=== PATIENT | female | born 1950 | race Caucasian/White ===

== ENCOUNTER → 2016-05-27 | Day surgery (SDC) | payer MEDICARE ==
[2016-05-26 12:00] VITALS: BMI 26.5
[2016-05-27 10:32] VITALS: BP 178/75; PULSE 51; RESP 18; TEMP 97.7
== END ==
LOC: CATHCVL 10:03
PROVIDERS: ATTEND Radiology Diagnostic Radiology
DX: Z53.8 Procedure and treatment not carried out for other reasons (principal)

== ENCOUNTER → 2016-06-16 | Day surgery (SDC) | payer MEDICARE ==
[2016-06-15 15:20] VITALS: BMI 26.7
[2016-06-16 12:20] VITALS: BP 131/62; PULSE 64; RESP 18; TEMP 99.1
[2016-06-16] MEDS: LIDOCAINE 2% INJ 20 MG/ML SQ ONE ×2 (12:37→13:03)
--- NOTE | 2016-06-16 14:53 | IR ---
PICC LINE PLACEMENT: HISTORY: Infection requiring long-term antibiotic therapy PROCEDURE: Ultrasound and fluoroscopic guidance of PICC line placement. COMPLICATIONS: None ANESTHESIA: 1. 1% Lidocaine locally. FINDINGS/TECHNIQUE: The procedure was explained to the patient. The risks, complications, benefits and alternatives were discussed and any questions were answered. Informed consent was obtained. The patient was placed supine on the fluoroscopic table and prepped and draped in the usual sterile fas ion. There is no sizable vein for percutaneous access for PICC line placement bilaterally. Referring physi komal notified. patient was stable throughout the procedure and remained stable upon discharge from [facility] Department of Radiology. All elements of the maximal barrier technique were utilized. FLUOROSCOPY TIME: 1.9 minutes IMPRESSION: No sizable vein for percutaneous placement of PICC line.
== END ==
LOC: CATHCVL 11:03
PROVIDERS: ATTEND Radiology Diagnostic Radiology
DX: M54.5 Low back pain (principal)

== ENCOUNTER → 2016-06-16 | Outpatient (CLI) | payer MEDICARE | LOC: RADMRIMAIN 15:40 | PROVIDERS: ATTEND Specialist | DX: Z53.9 Procedure and treatment not carried out, unspecified reason (principal) ==

== ENCOUNTER 2016-08-27 09:53 | Inpatient (IN) | payer MEDICARE ==
--- NOTE | 2016-08-27 09:55 | ED ---
General Adult HPI - General Stated complaint: Altered Mental Time Seen by Provider: 08/27/16 09:55 Source: RN notes reviewed, old records reviewed - History of Present Illness Initial comments: This is a 58-year-old female to the ER for evaluation. Patient presents for evaluation of syncopal event. Patient had a syncopal event while with friends earlier today having a cigarette. Patient has medical history that includes lower extremity paralysis, paraplegic. Patient has significant chronic pain disorder. Takes multiple different pain medications. Patient complains of some feelings of lightheadedness and dizziness, denies chest pain. - Related Data Home Medications Medication Instructions Recorded Confirmed Lubiprostone [Amitiza] 24 mcg PO BID 08/17/15 06/15/16 Acetaminophen [Tylenol] 325 mg PO Q8H PRN 05/26/16 06/15/16 Apixaban [Eliquis] 2.5 mg PO BID 05/26/16 06/15/16 Baclofen [Lioresal] 20 mg PO BID 05/26/16 06/15/16 Docusate [Colace] 200 mg PO BID PRN 05/26/16 06/15/16 Furosemide [Lasix] 20 mg PO HS 05/26/16 06/15/16 LORazepam [Ativan] 1 mg PO TID PRN 05/26/16 06/15/16 Melatonin 10 mg PO HS 05/26/16 06/15/16 Oxybutynin Xl [Ditropan Xl] 5 mg PO DAILY 05/26/16 06/15/16 Potassium Chloride ER [K-Dur 10] 8 meq PO HS 05/26/16 06/15/16 Pravastatin Sodium [Pravachol] 20 mg PO HS 05/26/16 06/15/16 Sennosides [Senna] 2 tab PO HS PRN 05/26/16 06/15/16 Sucralfate [Carafate] 1 gm PO ACHS 05/26/16 06/15/16 Tiotropium Adams [Spiriva 1 dose INHALATION DAILY 05/26/16 06/15/16 Respimat] Morphine Sulfate [Morphine Sulfate 45 mg PO Q8HR PRN 05/27/16 06/15/16 ER] Ammonium Lactate Lotion 1 applic TOPICAL BID 06/15/16 06/15/16 [Lac-Hydrin 12% Lotion] Benzocaine-Resorcinol Vaginal Cream 1 dose VAGINAL BID 06/15/16 Bisacodyl [Dulcolax] 10 mg RECTAL DAILY PRN 06/15/16 06/15/16 HYDROmorphone [Dilaudid] 10 mg PO Q2HR PRN 06/15/16 06/15/16 Hydrocortisone 1% Lotion 1 applic TOPICAL BID PRN 06/15/16 06/15/16 Levalbuterol Nebulized [Xopenex 1.25 mg INHALATION Q6HR PRN 06/15/16 06/15/16 Nebulized] Lidocaine 4% Cream [Lmx 4] 1 applic TOPICAL Q8HR 06/15/16 06/15/16 Magnesium Hydroxide [Milk of 2,400 mg PO DAILY PRN 06/15/16 06/15/16 Magnesia Concentrate] Metoprolol Tartrate [Lopressor] 12.5 mg PO BID 06/15/16 06/15/16 Mirtazapine [Remeron] 15 mg PO HS 06/15/16 06/15/16 Omeprazole 20 mg PO BID 06/15/16 06/15/16 Polyethylene Glycol 3350 [Miralax] 17 gm PO BID PRN 06/15/16 06/15/16 Allergies Allergy/AdvReac Type Severity Reaction Status Date / Time ciprofloxacin [From Cipro] Allergy Unknown Verified 06/15/16 15:07 escitalopram [From Lexapro] Allergy Unknown Verified 06/15/16 15:07 fexofenadine [From Oksana] Allergy Unknown Verified 06/15/16 15:07 gabapentin [From Neurontin] Allergy Unknown Verified 06/15/16 15:07 Influenza Virus Vaccines Allergy Unknown Verified 06/15/16 15:07 levetiracetam [From Keppra] Allergy Unknown Verified 06/15/16 15:07 paroxetine [From Paxil] Allergy Unknown Verified 06/15/16 15:07 Penicillins Allergy Anaphylaxis Verified 06/15/16 15:07 pregabalin [From Lyrica] Allergy Anaphylaxis Verified 06/15/16 15:07 sulfamethoxazole Allergy Dyspnea Verified 06/15/16 15:07 [From Bactrim] topiramate [From Topamax] Allergy Dyspnea Verified 06/15/16 15:07 trimethoprim [From Bactrim] Allergy Dyspnea Verified 06/15/16 15:07 tuberculin, purified protein Allergy Unknown Verified 06/15/16 15:07 deriva Review of Systems ROS Statement: Those systems with pertinent positive or pertinent negative responses have been documented in the HPI. ROS Other: All systems not noted in ROS Statement are negative. Past Medical History Past Medical History: COPD, CVA/TIA, Deep Vein Thrombosis (DVT), Hyperlipidemia , Hypertension, Neurologic Disorder, Osteoarthritis (OA), Pneumonia, Pulmonary Embolus (PE), Seizure Disorder, Vascular Disorder Additional Past Medical History / Comment(s): anemia, rt sided hemiparesis , chronic pain, spinal stenosis, hx of pressure ulcers,"poor circulation", type 2 diabetes (no meds), neuropathy, hx of seizures (unknown date of last seizure.) , occasional incontinence. , Pt is wheelchair bound, uses carlo lift to transfer. History of Any Multi-Drug Resistant Organisms: None Reported Past Surgical History: Back Surgery, Cholecystectomy, Orthopedic Surgery, Tubal Ligation Additional Past Surgical History / Comment(s): RT HIP REPLACEMENT,SECOND SX ON HIP(REVISION)-pt satated that this has come apart since, spinal fusion x3, fem pop bypass bilaterally, RT ARM BLOOD CLOT REMOVED, Past Anesthesia/Blood Transfusion Reactions: No Reported Reaction Past Psychological History: Anxiety, Bipolar, Depression, PTSD Additional Psychological History / Comment(s): BOARDERLINE PERSONALITY DISORDER Smoking Status: Current every day smoker Past Alcohol Use History: None Reported Additional Past Alcohol Use History / Comment(s): STARTED SMOKING IN HER 20"S- Past Drug Use History: None Reported - Past Family History Father Additional Family Medical History / Comment(s): ETOH ABUSE Mother Additional Family Medical History / Comment(s): POOR CIRCULATION General Exam General appearance: alert, in no apparent distress, anxious Head exam: Present: atraumatic, normocephalic, normal inspection Eye exam: Present: normal appearance, PERRL, EOMI. Absent: scleral icterus, conjunctival injection, periorbital swelling ENT exam: Present: normal exam, mucous membranes moist Neck exam: Present: normal inspection. Absent: tenderness, meningismus, lymphadenopathy Respiratory exam: Present: normal lung sounds bilaterally. Absent: respiratory distress, wheezes, rales, rhonchi, stridor Cardiovascular Exam: Present: tachycardia, irregular rhythm, normal heart sounds. Absent: systolic murmur, diastolic murmur, rubs, gallop, clicks GI/Abdominal exam: Present: soft, normal bowel sounds. Absent: distended, tenderness, guarding, rebound, rigid Extremities exam: Present: normal inspection, full ROM, normal capillary refill. Absent: tenderness, pedal edema, joint swelling, calf tenderness Back exam: Present: normal inspection Neurological exam: Present: alert, oriented X3, CN II-XII intact Psychiatric exam: Present: normal affect, normal mood Skin exam: Present: warm, dry, intact, normal color. Absent: rash Course Vital Signs 08/27/16 08/27/16 08/27/16 09:57 11:02 11:53 Temperature 98.7 F Pulse Rate 113 H 97 54 L Respiratory 18 18 18 Rate Blood Pressure 103/59 130/60 135/61 O2 Sat by Pulse 100 93 L 94 L Oximetry - Reevaluation(s) Reevaluation #1: 08/27/16 13:31 Patient's main complaint complaint appears to be surrounding pain. Generalized pain. Leg pain. She denies chest pain, no headache EKG Findings - EKG Comments: EKG Findings:: Rhythm strip shows A. fib and RVR. EKG shows sinus bradycardia acardia area 59, W[place] 134, QRS 74, QTC 423. EKG shows normal sinus rhythm rate of 63, W[place] 142, QRS 104, QTC 440 Medical Decision Making - Medical Decision Making 16 female beers today., Positive A. fib with RVR and history of seizure disorder, patient was postictal presumably has seen, in the ER today with A. fib with RVR which did convert with rate control. Patient placed on a Cardizem drip for cardiology evaluation, will also treat urinary tract infection underlying, CT is negative for dissection or aneurysm, no evidence of PE. Patient will be admitted for continued cardiac observation and cardiopulmonary status - Lab Data Result diagrams: 08/27/16 10:52 08/27/16 10:52 Lab Results 08/27/16 08/27/16 08/27/16 Range/Units 10:27 10:27 10:52 WBC 9.1 (3.8-10.6) k/uL RBC 4.79 (3.80-5.40) m/uL Hgb 12.0 (11.4-16.0) gm/dL Hct 38.6 (34.0-46.0) % MCV 80.5 (80.0-100.0) fL MCH 25.0 (25.0-35.0) pg MCHC 31.0 (31.0-37.0) g/dL RDW 19.4 H (11.5-15.5) % Plt Count 226 (150-450) k/uL Neutrophils % 80 % Lymphocytes % 12 % Monocytes % 4 % Eosinophils % 2 % Basophils % 0 % Neutrophils # 7.3 (1.3-7.7) k/uL Lymphocytes # 1.1 (1.0-4.8) k/uL Monocytes # 0.4 (0-1.0) k/uL Eosinophils # 0.2 (0-0.7) k/uL Basophils # 0.0 (0-0.2) k/uL Hypochromasia Marked Anisocytosis Slight Microcytosis Slight PT (9.0-12.0) sec INR (<1.2) APTT (22.0-30.0) sec D-Dimer (<0.60) mg/L FEU Sodium (137-145) mmol/L Potassium (3.5-5.1) mmol/L Chloride (98-107) mmol/L Carbon Dioxide (22-30) mmol/L Anion Gap mmol/L BUN (7-17) mg/dL Creatinine (0.52-1.04) mg/dL Est GFR (MDRD) Af Amer (>60 ml/min/1.73 sqM) Est GFR (MDRD) Non-Af (>60 ml/min/1.73 sqM) Glucose (74-99) mg/dL Plasma Lactic Acid Julio (0.7-2.0) mmol/L Calcium (8.4-10.2) mg/dL Phosphorus (2.5-4.5) mg/dL Magnesium (1.6-2.3) mg/dL Total Bilirubin (0.2-1.3) mg/dL AST (14-36) U/L ALT (9-52) U/L Alkaline Phosphatase (38-126) U/L Ammonia (<30) umol/L Total Creatine Kinase (30-135) U/L CK-MB (CK-2) (0.0-2.4) ng/mL CK-MB (CK-2) Rel Index Troponin I (0.000-0.034) ng/mL Total Protein (6.3-8.2) g/dL Albumin (3.5-5.0) g/dL TSH (0.465-4.680) mIU/L Urine Color Light Yellow Urine Appearance Clear (Clear) Urine pH 6.5 (5.0-8.0) Ur Specific Lopez 1.009 (1.001-1.035) Urine Protein Negative (Negative) Urine Glucose (UA) Negative (Negative) Urine Ketones Negative (Negative) Urine Blood Trace H (Negative) Urine Nitrite Positive H (Negative) Urine Bilirubin Negative (Negative) Urine Urobilinogen <2.0 (<2.0) mg/dL Ur Leukocyte Esterase Moderate H (Negative) Urine RBC 4 (0-5) /hpf Urine WBC 14 H (0-5) /hpf Ur Squamous Epith Cells <1 (0-4) /hpf Urine Bacteria Rare H (None) /hpf Hyaline Casts 8 H (0-2) /lpf Urine Mucus Rare H (None) /hpf Salicylates mg/dL Urine Opiates Screen Detected H (NotDetected) Ur Oxycodone Screen Not Detected (NotDetected) Urine Methadone Screen Not Detected (NotDetected) Ur Propoxyphene Screen Not Detected (NotDetected) Acetaminophen ug/mL Ur Barbiturates Screen Not Detected (NotDetected) U Tricyclic Antidepress Not Detected (NotDetected) Ur Phencyclidine Scrn Not Detected (NotDetected) Ur Amphetamines Screen Not Detected (NotDetected) U Methamphetamines Scrn Not Detected (NotDetected) U Benzodiazepines Scrn Detected H (NotDetected) Urine Cocaine Screen Not Detected (NotDetected) U Marijuana (THC) Screen Not Detected (NotDetected) Serum Alcohol mg/dL 08/27/16 08/27/16 08/27/16 Range/Units 10:52 10:52 10:52 WBC (3.8-10.6) k/uL RBC (3.80-5.40) m/uL Hgb (11.4-16.0) gm/dL Hct (34.0-46.0) % MCV (80.0-100.0) fL MCH (25.0-35.0) pg MCHC (31.0-37.0) g/dL RDW (11.5-15.5) % Plt Count (150-450) k/uL Neutrophils % % Lymphocytes % % Monocytes % % Eosinophils % % Basophils % % Neutrophils # (1.3-7.7) k/uL Lymphocytes # (1.0-4.8) k/uL Monocytes # (0-1.0) k/uL Eosinophils # (0-0.7) k/uL Basophils # (0-0.2) k/uL Hypochromasia Anisocytosis Microcytosis PT 9.9 (9.0-12.0) sec INR 1.0 (<1.2) APTT 22.1 (22.0-30.0) sec D-Dimer 1.65 H (<0.60) mg/L FEU Sodium 142 (137-145) mmol/L Potassium 3.5 (3.5-5.1) mmol/L Chloride 102 (98-107) mmol/L Carbon Dioxide 29 (22-30) mmol/L Anion Gap 11 mmol/L BUN 21 H (7-17) mg/dL Creatinine 0.55 (0.52-1.04) mg/dL Est GFR (MDRD) Af Amer >60 (>60 ml/min/1.73 sqM) Est GFR (MDRD) Non-Af >60 (>60 ml/min/1.73 sqM) Glucose 104 H (74-99) mg/dL Plasma Lactic Acid Julio 1.8 (0.7-2.0) mmol/L Calcium 8.6 (8.4-10.2) mg/dL Phosphorus 3.4 (2.5-4.5) mg/dL Magnesium 1.7 (1.6-2.3) mg/dL Total Bilirubin 0.3 (0.2-1.3) mg/dL AST 21 (14-36) U/L ALT 32 (9-52) U/L Alkaline Phosphatase 82 (38-126) U/L Ammonia <9 (<30) umol/L Total Creatine Kinase (30-135) U/L CK-MB (CK-2) (0.0-2.4) ng/mL CK-MB (CK-2) Rel Index Troponin I (0.000-0.034) ng/mL Total Protein 6.5 (6.3-8.2) g/dL Albumin 3.8 (3.5-5.0) g/dL TSH 1.680 (0.465-4.680) mIU/L Urine Color Urine Appearance (Clear) Urine pH (5.0-8.0) Ur Specific Lopez (1.001-1.035) Urine Protein (Negative) Urine Glucose (UA) (Negative) Urine Ketones (Negative) Urine Blood (Negative) Urine Nitrite (Negative) Urine Bilirubin (Negative) Urine Urobilinogen (<2.0) mg/dL Ur Leukocyte Esterase (Negative) Urine RBC (0-5) /hpf Urine WBC (0-5) /hpf Ur Squamous Epith Cells (0-4) /hpf Urine Bacteria (None) /hpf Hyaline Casts (0-2) /lpf Urine Mucus (None) /hpf Salicylates <1.0 mg/dL Urine Opiates Screen (NotDetected) Ur Oxycodone Screen (NotDetected) Urine Methadone Screen (NotDetected) Ur Propoxyphene Screen (NotDetected) Acetaminophen <10.0 ug/mL Ur Barbiturates Screen (NotDetected) U Tricyclic Antidepress (NotDetected) Ur Phencyclidine Scrn (NotDetected) Ur Amphetamines Screen (NotDetected) U Methamphetamines Scrn (NotDetected) U Benzodiazepines Scrn (NotDetected) Urine Cocaine Screen (NotDetected) U Marijuana (THC) Screen (NotDetected) Serum Alcohol <10 mg/dL 08/27/16 Range/Units 10:52 WBC (3.8-10.6) k/uL RBC (3.80-5.40) m/uL Hgb (11.4-16.0) gm/dL Hct (34.0-46.0) % MCV (80.0-100.0) fL MCH (25.0-35.0) pg MCHC (31.0-37.0) g/dL RDW (11.5-15.5) % Plt Count (150-450) k/uL Neutrophils % % Lymphocytes % % Monocytes % % Eosinophils % % Basophils % % Neutrophils # (1.3-7.7) k/uL Lymphocytes # (1.0-4.8) k/uL Monocytes # (0-1.0) k/uL Eosinophils # (0-0.7) k/uL Basophils # (0-0.2) k/uL Hypochromasia Anisocytosis Microcytosis PT (9.0-12.0) sec INR (<1.2) APTT (22.0-30.0) sec D-Dimer (<0.60) mg/L FEU Sodium (137-145) mmol/L Potassium (3.5-5.1) mmol/L Chloride (98-107) mmol/L Carbon Dioxide (22-30) mmol/L Anion Gap mmol/L BUN (7-17) mg/dL Creatinine (0.52-1.04) mg/dL Est GFR (MDRD) Af Amer (>60 ml/min/1.73 sqM) Est GFR (MDRD) Non-Af (>60 ml/min/1.73 sqM) Glucose (74-99) mg/dL Plasma Lactic Acid Julio (0.7-2.0) mmol/L Calcium (8.4-10.2) mg/dL Phosphorus (2.5-4.5) mg/dL Magnesium (1.6-2.3) mg/dL Total Bilirubin (0.2-1.3) mg/dL AST (14-36) U/L ALT (9-52) U/L Alkaline Phosphatase (38-126) U/L Ammonia (<30) umol/L Total Creatine Kinase 139 H (30-135) U/L CK-MB (CK-2) 1.9 (0.0-2.4) ng/mL CK-MB (CK-2) Rel Index 1.4 Troponin I <0.012 (0.000-0.034) ng/mL Total Protein (6.3-8.2) g/dL Albumin (3.5-5.0) g/dL TSH (0.465-4.680) mIU/L Urine Color Urine Appearance (Clear) Urine pH (5.0-8.0) Ur Specific Lopez (1.001-1.035) Urine Protein (Negative) Urine Glucose (UA) (Negative) Urine Ketones (Negative) Urine Blood (Negative) Urine Nitrite (Negative) Urine Bilirubin (Negative) Urine Urobilinogen (<2.0) mg/dL Ur Leukocyte Esterase (Negative) Urine RBC (0-5) /hpf Urine WBC (0-5) /hpf Ur Squamous Epith Cells (0-4) /hpf Urine Bacteria (None) /hpf Hyaline Casts (0-2) /lpf Urine Mucus (None) /hpf Salicylates mg/dL Urine Opiates Screen (NotDetected) Ur Oxycodone Screen (NotDetected) Urine Methadone Screen (NotDetected) Ur Propoxyphene Screen (NotDetected) Acetaminophen ug/mL Ur Barbiturates Screen (NotDetected) U Tricyclic Antidepress (NotDetected) Ur Phencyclidine Scrn (NotDetected) Ur Amphetamines Screen (NotDetected) U Methamphetamines Scrn (NotDetected) U Benzodiazepines Scrn (NotDetected) Urine Cocaine Screen (NotDetected) U Marijuana (THC) Screen (NotDetected) Serum Alcohol mg/dL - Radiology Data Radiology results: report reviewed (Bilateral lower extremity ultrasound negative for DVT, CT negative for PE), image reviewed Critical Care Time Critical Care Time: Yes Total Critical Care Time: 31 Disposition Clinical Impression: Seizure, Syncope and collapse, New onset atrial fibrillation, Atrial fibrillation with RVR, UTI (urinary tract infection) Disposition: ADMITTED IP TO THIS [facility] Condition: Fair Referrals: Dylan Venegas MD [Primary Care Provider] - 1-2 days
[2016-08-27] MEDS ORDERED: SODIUM CHLORIDE 0.9% 1,000 ML IV STA ×3 (10:11→11:16)
[2016-08-27] MEDS ORDERED: DILTIAZEM 125 MG in SODIUM CHLORIDE 0.9% 100 ML IV ONE (10:43)
[2016-08-27] MEDS ORDERED: DILTIAZEM 5 MG/ML 5 ML VIAL IVP STA (10:43)
[2016-08-27 10:59] LABS: Appearance,Urine Clear (Clear); Bacteria,Urine Rare /hpf; Bilirubin,Urine Negative (Negative); Glucose,Urine (UA) Negative (Negative); Ketones,Urine Negative (Negative); Leukocyte Esterase,Urine Moderate (Negative); Mucus,Urine Rare /hpf; Nitrite,Urine Positive (Negative); PH, Urine 6.5 (5.0-8.0); Particle Count 5349; Protein,Urine Negative (Negative); RBC,Urine 4 /hpf (0-5); Specific Gravity,Urine 1.009 (1.001-1.035); Squamous Epithelial Cell,Urine <1 /hpf (0-4); UA Billing (MACRO vs. MICRO) MICRO; Urobilinogen,Urine <2.0 mg/dL (<2.0); WBC,Urine 14 /hpf (0-5)
[2016-08-27 11:34] LABS: ALT 32 U/L (9-52); AST 21 U/L (14-36); Acetaminophen <10.0 ug/mL; Alcohol <10 mg/dL; Alkaline Phosphatase 82 U/L (38-126); Anion Gap 11 mmol/L; Blood Urea Nitrogen 21 mg/dL (7-17); Calcium 8.6 mg/dL (8.4-10.2); Carbon Dioxide 29 mmol/L (22-30); Chloride 102 mmol/L (98-107); Glucose 104 mg/dL (74-99); Magnesium 1.7 mg/dL (1.6-2.3); Non-African American GFR(MDRD) >60 (>60 ml/min/1.73 sqM); Phosphorous 3.4 mg/dL (2.5-4.5); Potassium 3.5 mmol/L (3.5-5.1); Salicylate <1.0 mg/dL; Sodium 142 mmol/L (137-145); Total Bilirubin 0.3 mg/dL (0.2-1.3); Total Protein 6.5 g/dL (6.3-8.2)
[2016-08-27 11:35] LABS: Anisocytosis Slight; Basophils % (A) 0 %; CH 23.9; CHCM 29.8; Eosinophils # (A) 0.2 k/uL (0-0.7); Eosinophils % (A) 2 %; HCT 38.6 % (34.0-46.0); HDW 2.77; Hypochromasia Marked; Luc # (Auto) 0.15; Luc % (Auto) 2; Lymphocytes # (A) 1.1 k/uL (1.0-4.8); Lymphocytes % (A) 12 %; MCV 80.5 fL (80.0-100.0); Mean Platelet Volume 8.2; Microcytosis Slight; Monocytes # (A) 0.4 k/uL (0-1.0); Monocytes % (A) 4 %; Neutrophils # (A) 7.3 k/uL (1.3-7.7); Neutrophils % (A) 80 %; RBC 4.79 m/uL (3.80-5.40); RDW 19.4 % (11.5-15.5); WBC 9.1 k/uL (3.8-10.6); WBC (Perox) 8.87
[2016-08-27 11:37] LABS: Ammonia <9 umol/L (<30)
[2016-08-27 11:44] LABS: Partial Thromboplastin Time 22.1 sec (22.0-30.0); Prothrombin Time 9.9 sec (9.0-12.0)
--- NOTE | 2016-08-27 11:55 | US ---
EXAMINATION TYPE: US venous doppler duplex LE DATE OF EXAM: 08/27/2016 11:42 AM COMPARISON: NONE CLINICAL HISTORY: Pain. SIDE PERFORMED: bilateral TECHNIQUE: The lower extremity deep venous system is examined utilizing real time linear array sonog moriah with graded compression, doppler sonography and color-flow sonography. VESSELS IMAGED: External Iliac Vein (EIV) Common Femoral Vein Deep Femoral Vein Greater Saphenous Vein * Femoral Vein Popliteal Vein Small Saphenous Vein * Proximal Calf Veins (* superficial vessels) Grayscale, color doppler, spectral doppler imaging performed of the deep veins of the lower extremiti es. There is normal flow, compressibility, vascular waveforms bilaterally. Right Leg: negative for dvt Left Leg: negative for dvt IMPRESSION: No evidence for DVT
[2016-08-27] MEDS ORDERED: RX INFO: IV CONTRAST WAS GIVEN 1 EACH MISC MISCELLANE PRN (11:56)
[2016-08-27 12:04] LABS: Creatine Kinase 139 U/L (30-135)
[2016-08-27] MEDS ORDERED: HYDROmorphone 2 MG/ML 1 ML SYRINGE IVP STA (12:16)
[2016-08-27] MEDS ORDERED: HYDROmorphone 2 MG/ML 1 ML SYRINGE IVP PRN (12:16)
[2016-08-27 12:18] LABS: Creatine Kinase MB 1.9 ng/mL (0.0-2.4); Troponin I <0.012 ng/mL (0.000-0.034)
--- NOTE | 2016-08-27 13:15 | CT ---
EXAMINATION TYPE: CT angio chest DATE OF EXAM: 08/27/2016 12:53 PM COMPARISON: NONE HISTORY: elevated d dimer CT DLP: 363.9 mGycm Automated exposure control for dose reduction was used. CONTRAST: CTA scan of the thorax is performed with IV Contrast, patient injected with 100 mL of Omnipaque 350, pulmonary embolism protocol. There are 3-D post processed images.. FINDINGS: There is a patchy nodular pulmonary infiltrate in the right upper lobe. There are also coarse calcifi cations that measure up to 1 cm. There is no evidence of aortic aneurysm or dissection. I see no fill ing defects in the pulmonary arteries. There are no hilar masses. There is subpleural interstitial de nsity at the posterior lung bases consistent with scarring and atelectasis. There is no pleural effus ion. There is no pericardial effusion. The bony thorax is intact. There is spurring in the thoracic s pine. IMPRESSION: NO EVIDENCE OF PULMONARY EMBOLISM. EXTENSIVE NODULAR INFILTRATE IN THE RIGHT UPPER LOBE WITH CALCIFIC ATION PROBABLY DUE TO OLD GRANULOMATOUS DISEASE AND SCARRING. FIBROTIC CHANGES AND SUBSEGMENTAL ATELECTASIS AT THE LUNG BASES. RIGHT-SIDED CENTRAL VENOUS CATHETER NOTED. THE TIP IS IN THE SUPERIOR VENA CAVA. 2.5 CM OVAL-SHAPED CUTANEOUS MASS NOTED IN THE POSTERIOR RIGHT UPPER BACK COULD BE A SEBACEOUS CYST.
[2016-08-27] MEDS ORDERED: IPRATROPIUM-ALBUTEROL 3 ML NEB INHALATION STA (13:26)
[2016-08-27] MEDS ORDERED: ASPIRIN 81 MG CHEW PO STA (13:26)
[2016-08-27] MEDS ORDERED: NITROGLYCERIN SL TABS 0.4 MG TAB SUBLINGUAL PRN (13:26)
[2016-08-27] MEDS ORDERED: HEPARIN SODIUM,PORCINE 5,000 UNIT/ML 1 ML VIAL IV ONE (13:26)
[2016-08-27] MEDS ORDERED: IPRATROPIUM-ALBUTEROL 3 ML NEB INHALATION PRN (13:26)
[2016-08-27] MEDS ORDERED: HEPARIN SODIUM,PORCINE 5,000 UNIT/ML 1 ML VIAL IV PRN (13:26)
[2016-08-27] MEDS ORDERED: HEPARIN SODIUM,PORCINE/D5W PMX 25,000 UNIT in DEXTROSE/WATER 1 500ML.BAG IV SCH (13:30)
[2016-08-27 14:35] VITALS: BMI 28.0
[2016-08-27] MEDS: SODIUM CHLORIDE 0.9% 1,000 ML IV SCH (14:54)
[2016-08-27 17:13] LABS: Glucose,Whole Blood 115 mg/dL (75-99)
[2016-08-27 17:30] LABS: Creatine Kinase MB 1.9 ng/mL (0.0-2.4); Troponin I 0.02 ng/mL (0.000-0.034)
[2016-08-27] MEDS ORDERED: HYDROCORTISONE 1% CREAM 30 GM TUBE TOPICAL PRN (17:56)
[2016-08-27] MEDS ORDERED: NA PHOS,M-B/NA PHOS,DI-BA 133 ML ENEMA RECTAL PRN (17:56)
[2016-08-27] MEDS ORDERED: LORazepam 1 MG TAB PO PRN (17:56)
[2016-08-27] MEDS ORDERED: ACETAMINOPHEN TAB 325 MG TAB PO PRN (17:56)
[2016-08-27] MEDS ORDERED: DOCUSATE 100 MG CAP PO PRN (17:56)
[2016-08-27] MEDS ORDERED: MORPHINE SULFATE ER 15 MG TABLET PO PRN (17:56)
[2016-08-27] MEDS ORDERED: SENNOSIDES 8.6 MG TAB PO PRN (17:56)
[2016-08-27] MEDS ORDERED: MAG HYDROX/AL HYDROX/SIMETH 30 ML CUP PO PRN (17:56)
[2016-08-27] MEDS ORDERED: MAGNESIUM HYDROXIDE 2,400 MG/10 ML CUP PO PRN (17:56)
[2016-08-27] MEDS ORDERED: BISACODYL 10 MG SUPP RECTAL PRN (17:56)
--- NOTE | 2016-08-27 18:12 | P.HPIM ---
History of Present Illness 66-year-old female came in after a syncopal episode patient has syncopal episode while she was a smoking with her friends earlier today. Patient denied any seizure-like activity loss of bowel or bladder incontinence patient was sent in here patient is on multiple narcotic medication patient had episode atrial of atrial fibrillation with rapid and regular rate patient has a known A. fib on apixiban for anticoagulation patient denied any palpitations. Patient was given a dose of Cardizem after which patient was converted to sinus rhythm patient is presently sinus bradycardic. Patient uses metoprolol as an outpatient for her atrial fibrillation. Patient is on multiple narcotic and opiate analgesic medications for her chronic low back pain patient had a back surgery leading to paraplegia. A she did this point of time denied any fever chills, nausea, vomiting, dysuria patient has a Rogers catheter which appears to be chronic. Denied any lightheadedness. Review of Systems REVIEW OF SYSTEMS: CONSTITUTIONAL: No fever, no malaise, no fatigue. HEENT: No recent visual problems or hearing problems. Denied any sore throat. CARDIOVASCULAR: No chest pain, orthopnea, PND, no palpitations, PULMONARY: No shortness of breath, no cough, no hemoptysis. GASTROINTESTINAL: No diarrhea, no nausea, no vomiting, no abdominal pain. Normoactive bowel sounds. NEUROLOGICAL: No headaches, no weakness, no numbness. HEMATOLOGICAL: Denies any bleeding or petechiae. GENITOURINARY: Denies any burning micturition, frequency, or urgency. MUSCULOSKELETAL/RHEUMATOLOGICAL: Denies any joint pain, swelling, or any muscle pain. ENDOCRINE: Denies any polyuria or polydipsia. The rest of the 14-point review of systems is negative. Past Medical History Past Medical History: COPD, CVA/TIA, Deep Vein Thrombosis (DVT), Hyperlipidemia , Hypertension, Neurologic Disorder, Osteoarthritis (OA), Pneumonia, Pulmonary Embolus (PE), Seizure Disorder, Vascular Disorder Additional Past Medical History / Comment(s): anemia, rt sided hemiparesis , chronic pain, spinal stenosis, hx of pressure ulcers,"poor circulation", type 2 diabetes (no meds), neuropathy, hx of seizures (unknown date of last seizure.) , occasional incontinence. , Pt is wheelchair bound, uses carlo lift to transfer. History of Any Multi-Drug Resistant Organisms: None Reported Past Surgical History: Back Surgery, Cholecystectomy, Orthopedic Surgery, Tubal Ligation Additional Past Surgical History / Comment(s): RT HIP REPLACEMENT,SECOND SX ON HIP(REVISION)-pt satated that this has come apart since, spinal fusion x3, fem pop bypass bilaterally, RT ARM BLOOD CLOT REMOVED, Past Anesthesia/Blood Transfusion Reactions: No Reported Reaction Past Psychological History: Anxiety, Bipolar, Depression, PTSD Additional Psychological History / Comment(s): BOARDERLINE PERSONALITY DISORDER Smoking Status: Current every day smoker Past Alcohol Use History: None Reported Additional Past Alcohol Use History / Comment(s): STARTED SMOKING IN HER 20"S- Past Drug Use History: None Reported - Past Family History Father Additional Family Medical History / Comment(s): ETOH ABUSE Mother Additional Family Medical History / Comment(s): POOR CIRCULATION Medications and Allergies Home Medications Medication Instructions Recorded Confirmed Type Lubiprostone [Amitiza] 24 mcg PO BID 08/17/15 08/27/16 History Acetaminophen [Tylenol] 325 mg PO Q8H PRN 05/26/16 08/27/16 History Apixaban [Eliquis] 2.5 mg PO BID 05/26/16 08/27/16 History Baclofen [Lioresal] 20 mg PO BID 05/26/16 08/27/16 History Docusate [Colace] 200 mg PO BID PRN 05/26/16 08/27/16 History Furosemide [Lasix] 20 mg PO BID 05/26/16 08/27/16 History LORazepam [Ativan] 1 mg PO TID PRN 05/26/16 08/27/16 History Oxybutynin Xl [Ditropan Xl] 5 mg PO DAILY 05/26/16 08/27/16 History Pravastatin Sodium [Pravachol] 20 mg PO HS 05/26/16 08/27/16 History Sennosides [Senna] 17.2 mg PO HS PRN 05/26/16 08/27/16 History Tiotropium Hamel [Spiriva 1 cap INHALATION RT-DAILY 05/26/16 08/27/16 History Respimat] Ammonium Lactate Lotion 1 applic TOPICAL BID 06/15/16 08/27/16 History [Lac-Hydrin 12% Lotion] Benzocaine-Resorcinol Vaginal Cream 1 dose VAGINAL BID 06/15/16 08/27/16 History Bisacodyl [Dulcolax] 10 mg RECTAL DAILY PRN 06/15/16 08/27/16 History HYDROmorphone [Dilaudid] 2 mg PO Q2HR PRN 06/15/16 08/27/16 History Hydrocortisone 1% Lotion 1 applic TOPICAL BID PRN 06/15/16 08/27/16 History Levalbuterol Nebulized [Xopenex 1.25 mg INHALATION RT-Q6H PRN 06/15/16 08/27/16 History Nebulized] Lidocaine 4% Cream [Lmx 4] 1 applic TOPICAL BID 06/15/16 08/27/16 History Magnesium Hydroxide [Milk of 2,400 mg PO DAILY PRN 06/15/16 08/27/16 History Magnesia Concentrate] Metoprolol Tartrate [Lopressor] 12.5 mg PO BID 06/15/16 08/27/16 History Mirtazapine [Remeron] 15 mg PO HS 06/15/16 08/27/16 History Omeprazole 20 mg PO BID 06/15/16 08/27/16 History Polyethylene Glycol 3350 [Miralax] 17 gm PO BID 06/15/16 08/27/16 History Ferrous Sulfate [Feosol] 325 mg PO HS 08/27/16 08/27/16 History HYDROmorphone HCL [Dilaudid] 8 mg PO Q2H 08/27/16 08/27/16 History Melatonin 9 mg PO HS 08/27/16 08/27/16 History Morphine Sulfate ER [Ms Contin 15 mg PO Q8H PRN 08/27/16 08/27/16 History 15Mg] Morphine Sulfate ER [Ms Contin 30 mg PO Q12HR 08/27/16 08/27/16 History 30Mg] Mylanta Susp 30 ml PO Q6H PRN 08/27/16 08/27/16 History Na Phos,M-B/Na Phos,Di-Ba [Fleet 133 ml RECTAL DAILY PRN 08/27/16 08/27/16 History Adult] Msisvoir-Dklnjrubms-Niqh Oint 1 applic TOPICAL TID 08/27/16 08/27/16 History [Triple Antibiotic Ointment] Potassium Chloride 8 meq PO HS 08/27/16 08/27/16 History Allergies Allergy/AdvReac Type Severity Reaction Status Date / Time ciprofloxacin [From Cipro] Allergy Unknown Verified 08/27/16 13:36 escitalopram [From Lexapro] Allergy Unknown Verified 08/27/16 13:36 fexofenadine [From Oksana] Allergy Unknown Verified 08/27/16 13:36 gabapentin [From Neurontin] Allergy Unknown Verified 08/27/16 13:36 Influenza Virus Vaccines Allergy Unknown Verified 08/27/16 13:36 levetiracetam [From Keppra] Allergy Unknown Verified 08/27/16 13:36 paroxetine [From Paxil] Allergy Unknown Verified 08/27/16 13:36 Penicillins Allergy Anaphylaxis Verified 08/27/16 13:36 pregabalin [From Lyrica] Allergy Anaphylaxis Verified 08/27/16 13:36 sulfamethoxazole Allergy Dyspnea Verified 08/27/16 13:36 [From Bactrim] topiramate [From Topamax] Allergy Dyspnea Verified 08/27/16 13:36 trimethoprim [From Bactrim] Allergy Dyspnea Verified 08/27/16 13:36 tuberculin, purified protein Allergy Unknown Verified 08/27/16 13:36 deriva Physical Exam Vitals: Vital Signs Temp Pulse Pulse Resp BP BP Pulse Ox 08/27/16 15:11 97.6 F 52 L 18 138/61 99 08/27/16 14:02 98.4 F 59 L 18 137/51 93 L 08/27/16 13:00 55 L 18 144/63 95 08/27/16 11:53 54 L 18 135/61 94 L 08/27/16 11:02 97 18 130/60 93 L 08/27/16 09:57 98.7 F 113 H 18 103/59 100 Intake and Output 08/27/16 08/27/16 08/27/16 06:59 14:59 22:59 Intake Total 200 Balance 200 Intake: Intake, IV Titration 200 Amount Sodium Chloride 0.9% 1, 200 000 ml @ 100 mls/hr IV . Q10H [facility] Rx#:[id number] Other: Voiding Method Indwelling Catheter Indwelling Catheter Weight 71.668 kg Patient Weight 08/28/16 06:59 Weight 71.668 kg PHYSICAL EXAMINATION: GENERAL: The patient is alert and oriented x3, not in any acute distress. Well developed, well nourished. HEENT: Pupils are round and equally reacting to light. EOMI. No scleral icterus. No conjunctival pallor. Normocephalic, atraumatic. No pharyngeal erythema. No thyromegaly. CARDIOVASCULAR: S1 and S2 present. No murmurs, rubs, or gallops. PULMONARY: Chest is clear to auscultation, no wheezing or crackles. ABDOMEN: Soft, nontender, nondistended, normoactive bowel sounds. No palpable organomegaly. MUSCULOSKELETAL: No joint swelling or deformity. EXTREMITIES: No cyanosis, clubbing, or pedal edema. NEUROLOGICAL: Patient does have paraplegia and no new focal deficits were appreciated today. SKIN: No rashes. Results CBC & Chem 7: 08/27/16 10:52 08/27/16 10:52 Labs: Abnormal Lab Results - Last 24 Hours (Table) 08/27/16 08/27/16 08/27/16 Range/Units 10:27 10:27 10:52 RDW 19.4 H (11.5-15.5) % D-Dimer (<0.60) mg/L FEU BUN (7-17) mg/dL Glucose (74-99) mg/dL POC Glucose (mg/dL) (75-99) mg/dL Total Creatine Kinase (30-135) U/L Urine Blood Trace H (Negative) Urine Nitrite Positive H (Negative) Ur Leukocyte Esterase Moderate H (Negative) Urine WBC 14 H (0-5) /hpf Urine Bacteria Rare H (None) /hpf Hyaline Casts 8 H (0-2) /lpf Urine Mucus Rare H (None) /hpf Urine Opiates Screen Detected H (NotDetected) U Benzodiazepines Scrn Detected H (NotDetected) 08/27/16 08/27/16 08/27/16 Range/Units 10:52 10:52 10:52 RDW (11.5-15.5) % D-Dimer 1.65 H (<0.60) mg/L FEU BUN 21 H (7-17) mg/dL Glucose 104 H (74-99) mg/dL POC Glucose (mg/dL) (75-99) mg/dL Total Creatine Kinase 139 H (30-135) U/L Urine Blood (Negative) Urine Nitrite (Negative) Ur Leukocyte Esterase (Negative) Urine WBC (0-5) /hpf Urine Bacteria (None) /hpf Hyaline Casts (0-2) /lpf Urine Mucus (None) /hpf Urine Opiates Screen (NotDetected) U Benzodiazepines Scrn (NotDetected) 08/27/16 08/27/16 Range/Units 16:44 16:56 RDW (11.5-15.5) % D-Dimer (<0.60) mg/L FEU BUN (7-17) mg/dL Glucose (74-99) mg/dL POC Glucose (mg/dL) 115 H (75-99) mg/dL Total Creatine Kinase 139 H (30-135) U/L Urine Blood (Negative) Urine Nitrite (Negative) Ur Leukocyte Esterase (Negative) Urine WBC (0-5) /hpf Urine Bacteria (None) /hpf Hyaline Casts (0-2) /lpf Urine Mucus (None) /hpf Urine Opiates Screen (NotDetected) U Benzodiazepines Scrn (NotDetected) Thrombosis Risk Factor Assmnt - Choose All That Apply Any of the Below Risk Factors Present?: Yes Each Factor Represents 1 point: Abnormal pulmonary function (COPD) Other Risk Factors: Yes Each Risk Factor Represents 2 Points: Age 61-74 years Thrombosis Risk Factor Assessment Total Risk Factor Score: 3 Thrombosis Risk Factor Assessment Level: Moderate Risk Assessment and Plan Plan: #1 syncopal episode: Probably vasovagal event will obtain echocardiogram monitor her on case monitor today. Possibly of discharge tomorrow back to subacute rehabilitation that is [facility]. #2 Paraplegia: No new weakness supportive care 3 atrial fibrillation: Patient is presently rate controlled actually in sinus rhythm continue with anticoagulation and beta carlos. echocardiac exam today. #4 chronic low back pain #5 COPD without any acute exacerbation counseling was provided regarding this #5 DVT in the past will continue with anti-correlation as mentioned above #6 pulmonary embolism in the past #7 seizure disorder: Continue her home medications #8 cerebrovascular accident in the past.
[2016-08-27] MEDS ORDERED: NON-FORMULARY DRUG (Lubiprostone [Amitiza] 24 MCG) PO SCH (21:00)
[2016-08-27] MEDS ORDERED: RESORCINOL VAGINAL SCH (21:00)
[2016-08-27] MEDS ORDERED: BENZOCAINE VAGINAL SCH (21:00)
[2016-08-27] MEDS ORDERED: APIXABAN 2.5 MG TABLET PO SCH (21:00)
[2016-08-27 21:07] LABS: Glucose,Whole Blood 112 mg/dL (75-99)
[2016-08-27] MEDS ORDERED: levETIRAcetam IV 750 MG in SODIUM CHLORIDE 0.9% 100 ML IVPB STA (21:54)
[2016-08-27] MEDS ORDERED: PHENYTOIN SODIUM INJ 1,000 MG in SODIUM CHLORIDE 0.9% 100 ML IVPB STA (22:03)
--- NOTE | 2016-08-27 23:02 | CT ---
EXAM: CT Head Without Intravenous Contrast CLINICAL HISTORY: Reason: seizure TECHNIQUE: Axial computed tomography images of the head/brain without intravenous contrast. CTDI is 60.3 mGy and DLP is 1090.40 mGy-cm. This CT exam was performed using one or more of the following dose reduction techniques: automated exposure control, adjustment of the mA and/or kV according to patient size, and/or use of iterative reconstruction technique. COMPARISON: CT head 07/16/15 FINDINGS: Brain: Mild cerebral atrophy. No evidence of acute intracranial hemorrhage or acute cortical cerebral infarction. No cerebral edema. Ventricles: Unremarkable. No ventriculomegaly. Bones/joints: No acute skull fracture. Soft tissues: Unremarkable. Vasculature: Calcified atherosclerosis involving the cavernous segments of the internal carotid arteries. Sinuses: Imaged paranasal sinuses are clear except for minimal right maxillary sinus mucosal thickening. Mastoid air cells: Unremarkable as visualized. IMPRESSION: No evidence of acute intracranial abnormality.
[2016-08-28 00:15] LABS: Creatine Kinase MB 1.3 ng/mL (0.0-2.4); Troponin I 0.014 ng/mL (0.000-0.034)
[2016-08-28] MEDS: FUROSEMIDE 20 MG TAB PO SCH ×3 (00:22→20:54)
[2016-08-28] MEDS: POTASSIUM CHLORIDE ER 10 MEQ TAB.ER.PRT PO SCH ×2 (00:22→20:53)
[2016-08-28] MEDS: BACLOFEN 10 MG TAB PO SCH ×3 (00:22→20:54)
[2016-08-28] MEDS: MIRTAZAPINE 15 MG TAB PO SCH ×2 (00:23→21:14)
[2016-08-28] MEDS: APIXABAN 5 MG TAB PO SCH ×3 (00:23→20:54)
[2016-08-28] MEDS: PRAVASTATIN SODIUM 20 MG TAB PO SCH ×2 (00:23→20:54)
[2016-08-28] MEDS: HYDROmorphone 2 MG TAB PO PRN ×4 (00:26→21:10)
[2016-08-28] MEDS: FERROUS SULFATE 325 MG TAB PO SCH ×2 (05:16→20:55)
[2016-08-28] MEDS: HYDROmorphone 2 MG TAB PO SCH ×11 (05:16→21:03)
[2016-08-28] MEDS: AMMONIUM LACTATE 12% LOTION 225 GM BTL TOPICAL SCH ×3 (05:16→20:57)
[2016-08-28] MEDS: METOPROLOL TARTRATE 12.5 MG TAB PO SCH ×3 (05:17→20:54)
[2016-08-28] MEDS: LIDOCAINE 4% CREAM 5 GM TUBE TOPICAL SCH ×3 (05:17→20:57)
[2016-08-28] MEDS: MORPHINE SULFATE ER 30 MG TABLET PO SCH ×3 (05:17→23:01)
[2016-08-28] MEDS: POLYETHYLENE GLYCOL 3350 17 GM POWD.PACK PO SCH ×3 (05:17→20:58)
[2016-08-28] MEDS: MELATONIN 3 MG TABLET PO SCH ×2 (05:17→20:55)
[2016-08-28] MEDS: NEOMYCIN-BACITRACIN-POLY OINT 14 GM TUBE TOPICAL SCH ×4 (05:17→20:57)
[2016-08-28 05:41] LABS: Glucose,Whole Blood 112 mg/dL (75-99)
[2016-08-28] MEDS ORDERED: PHENYTOIN SODIUM INJ 100 MG in SODIUM CHLORIDE 0.9% 100 ML IVPB SCH (06:00)
[2016-08-28] MEDS: SODIUM CHLORIDE 0.9% 1,000 ML IV SCH ×3 (06:09→20:56)
[2016-08-28] MEDS: PANTOPRAZOLE 40 MG TABLET PO SCH (06:31)
[2016-08-28] MEDS ORDERED: TIOTROPIUM 18 MCG/PUFF INHALER INHALATION SCH (08:00)
[2016-08-28] MEDS ORDERED: levETIRAcetam IV 750 MG in SODIUM CHLORIDE 0.9% 100 ML IVPB SCH (09:00)
[2016-08-28] MEDS: OXYBUTYNIN XL 5 MG TAB.ER.24 PO SCH (10:15)
[2016-08-28] MEDS: ASPIRIN 325 MG TAB PO SCH (10:16)
--- NOTE | 2016-08-28 13:59 | P.PN ---
Subjective 66-year-old female with paraplegia came in with syncopal episode. Patient had a tonic-clonic seizure yesterday. Neurology was consulted. Patient is getting an MRI and an EEG and patient was started on senna time. Patient is seizure free since then. Patient denied any fever, chills, nausea, vomiting requesting IV narcotic pain medications for her low back pain which I declined Objective - Vital Signs Vital signs: Vital Signs Temp 97.6 F 08/28/16 08:00 Pulse 53 L 08/28/16 08:00 Resp 17 08/28/16 08:00 BP 146/69 08/28/16 08:00 Pulse Ox 93 L 08/28/16 08:00 Intake & Output 08/27/16 08/28/16 08/28/16 18:59 06:59 18:59 Intake Total 200 1100 Output Total 2000 700 Balance 200 -900 -700 Weight 71.668 kg 78 kg Intake: IV 1000 Sodium Chloride 0.9% 1, 1000 000 ml @ 100 mls/hr IV . Q10H [facility] Rx#:[id number] Intake, IV Titration 200 100 Amount Phenytoin Sodium Inj 100 100 mg In Sodium Chloride 0.9 % 100 ml @ 200 mls/hr IVPB Q8H [facility] Rx#: [id number] Sodium Chloride 0.9% 1, 200 000 ml @ 100 mls/hr IV . Q10H [facility] Rx#:[id number] Output: Urine 2000 700 Other: Voiding Method Indwelling Catheter Indwelling Catheter Indwelling Catheter - Exam PHYSICAL EXAMINATION: GENERAL: The patient is alert and oriented x3, not in any acute distress. Well developed, well nourished. HEENT: Pupils are round and equally reacting to light. EOMI. No scleral icterus. No conjunctival pallor. Normocephalic, atraumatic. No pharyngeal erythema. No thyromegaly. CARDIOVASCULAR: S1 and S2 present. No murmurs, rubs, or gallops. PULMONARY: Chest is clear to auscultation, no wheezing or crackles. ABDOMEN: Soft, nontender, nondistended, normoactive bowel sounds. No palpable organomegaly. MUSCULOSKELETAL: No joint swelling or deformity. EXTREMITIES: No cyanosis, clubbing, or pedal edema. NEUROLOGICAL: Patient does have paraplegia and no new focal deficits were appreciated today. SKIN: No rashes. - Labs CBC & Chem 7: 08/28/16 06:16 08/27/16 10:52 Labs: Abnormal Lab Results - Last 24 Hours (Table) 08/27/16 08/27/16 08/27/16 Range/Units 16:44 16:56 21:06 POC Glucose (mg/dL) 115 H 112 H (75-99) mg/dL Total Creatine Kinase 139 H (30-135) U/L Triglycerides (<150) mg/dL HDL Cholesterol (40-60) mg/dL 08/27/16 08/28/16 08/28/16 Range/Units 23:02 05:40 06:16 POC Glucose (mg/dL) 112 H (75-99) mg/dL Total Creatine Kinase 141 H (30-135) U/L Triglycerides 158 H (<150) mg/dL HDL Cholesterol 39 L (40-60) mg/dL Microbiology - Last 24 Hours (Table) 08/27/16 10:27 Urine Culture - Preliminary Urine,Catheterized Assessment and Plan Plan: #1 syncopal episode: Probably vasovagal event will obtain echocardiogram monitor her on dry kiln burner today. Possibly of discharge tomorrow back to subacute rehabilitation that is [facility]. The loss of consciousness even maybe even related to tonic-clonic seizure she had last night apparently patient had history of seizures in the past. #2 Paraplegia: No new weakness supportive care 3 atrial fibrillation: Patient is presently rate controlled actually in sinus rhythm continue with anticoagulation and beta carlos. echocardiac exam today. #4 chronic low back pain #5 COPD without any acute exacerbation counseling was provided regarding this #5 DVT in the past will continue with anti-correlation as mentioned above #6 pulmonary embolism in the past #7 seizure disorder: Continue her home medications #8 cerebrovascular accident in the past. #9 tonic-clonic seizure: MRI and EEG, neurology evaluated the patient patient was started on Dilantin.
[2016-08-28] MEDS: PHENYTOIN SODIUM INJ 50 MG/ML 2 ML VIAL IV SCH ×2 (16:18→23:02)
--- NOTE | 2016-08-28 16:34 | P.CNNES ---
History of Present Illness Consult date: 08/28/16 Reason for Consult: Patient being evaluated for seizure disorder. History of Present Illness: This patient is a 66-year-old right-handed white female who was admitted to Hospital on 08/27/2016 for further evaluation of syncope. Patient is currently residing at [facility] in [place] and was out having a cigarette with some friends and apparently had a syncopal episode. Patient denied any seizure activity associated with that spasming out spell. She denied any bowel or bladder incontinence. She was transferred to the [facility] for further evaluation. She has a known history of atrial fibrillation and is currently on Eliquis for long-term anticoagulation. Patient was admitted to hospital for further evaluation. She did have evidence of sinus bradycardia on her EKG. She was given a dose of Cardizem for this. She was on multiple narcotic pain medications and these were discontinued and placed on hold. 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 She has been at the [facility] for the past 10 months. She has a history of seizures in the past. She was doing fairly well until yesterday when she had a witnessed seizure. She was loaded with IV Dilantin and sent for a computed tomography scan of the brain. CAT scan of the brain done yesterday revealed no evidence of any acute intracranial abnormality. Patient was placed on Dilantin for seizure prophylaxis. Her Dilantin level today is therapeutic at 12.6. We will continue close neurological follow-up for the patient during this admission. Her overall prognosis remains guarded. Neurology is now been consulted for further evaluation and recommendations. Review of Systems Neurological: Reports change in mentation, Reports confusion, Reports convulsions, Reports memory loss, Reports seizures Psychiatric: Reports confusion, Reports difficulty concentrating, Reports memory loss Endocrine: Denies fatigue, Denies weight change Past Medical History Past Medical History: COPD, CVA/TIA, Deep Vein Thrombosis (DVT), Hyperlipidemia , Hypertension, Neurologic Disorder, Osteoarthritis (OA), Pneumonia, Pulmonary Embolus (PE), Seizure Disorder, Vascular Disorder Additional Past Medical History / Comment(s): anemia, rt sided hemiparesis , chronic pain, spinal stenosis, hx of pressure ulcers,"poor circulation", type 2 diabetes (no meds), neuropathy, hx of seizures (unknown date of last seizure.) , occasional incontinence. , Pt is wheelchair bound, uses carlo lift to transfer. History of Any Multi-Drug Resistant Organisms: None Reported Past Surgical History: Back Surgery, Cholecystectomy, Orthopedic Surgery, Tubal Ligation Additional Past Surgical History / Comment(s): RT HIP REPLACEMENT,SECOND SX ON HIP(REVISION)-pt satated that this has come apart since, spinal fusion x3, fem pop bypass bilaterally, RT ARM BLOOD CLOT REMOVED, Past Anesthesia/Blood Transfusion Reactions: No Reported Reaction Past Psychological History: Anxiety, Bipolar, Depression, PTSD Additional Psychological History / Comment(s): BOARDERLINE PERSONALITY DISORDER Smoking Status: Current every day smoker Past Alcohol Use History: None Reported Additional Past Alcohol Use History / Comment(s): STARTED SMOKING IN HER 20"S- Past Drug Use History: None Reported - Past Family History Father Additional Family Medical History / Comment(s): ETOH ABUSE Mother Additional Family Medical History / Comment(s): POOR CIRCULATION Medications and Allergies Home Medications Medication Instructions Recorded Confirmed Type Lubiprostone [Amitiza] 24 mcg PO BID 08/17/15 08/27/16 History Acetaminophen [Tylenol] 325 mg PO Q8H PRN 05/26/16 08/27/16 History Apixaban [Eliquis] 2.5 mg PO BID 05/26/16 08/27/16 History Baclofen [Lioresal] 20 mg PO BID 05/26/16 08/27/16 History Docusate [Colace] 200 mg PO BID PRN 05/26/16 08/27/16 History Furosemide [Lasix] 20 mg PO BID 05/26/16 08/27/16 History LORazepam [Ativan] 1 mg PO TID PRN 05/26/16 08/27/16 History Oxybutynin Xl [Ditropan Xl] 5 mg PO DAILY 05/26/16 08/27/16 History Pravastatin Sodium [Pravachol] 20 mg PO HS 05/26/16 08/27/16 History Sennosides [Senna] 17.2 mg PO HS PRN 05/26/16 08/27/16 History Tiotropium Fonda [Spiriva 1 cap INHALATION RT-DAILY 05/26/16 08/27/16 History Respimat] Ammonium Lactate Lotion 1 applic TOPICAL BID 06/15/16 08/27/16 History [Lac-Hydrin 12% Lotion] Benzocaine-Resorcinol Vaginal Cream 1 dose VAGINAL BID 06/15/16 08/27/16 History Bisacodyl [Dulcolax] 10 mg RECTAL DAILY PRN 06/15/16 08/27/16 History HYDROmorphone [Dilaudid] 2 mg PO Q2HR PRN 06/15/16 08/27/16 History Hydrocortisone 1% Lotion 1 applic TOPICAL BID PRN 06/15/16 08/27/16 History Levalbuterol Nebulized [Xopenex 1.25 mg INHALATION RT-Q6H PRN 06/15/16 08/27/16 History Nebulized] Lidocaine 4% Cream [Lmx 4] 1 applic TOPICAL BID 06/15/16 08/27/16 History Magnesium Hydroxide [Milk of 2,400 mg PO DAILY PRN 06/15/16 08/27/16 History Magnesia Concentrate] Metoprolol Tartrate [Lopressor] 12.5 mg PO BID 06/15/16 08/27/16 History Mirtazapine [Remeron] 15 mg PO HS 06/15/16 08/27/16 History Omeprazole 20 mg PO BID 06/15/16 08/27/16 History Polyethylene Glycol 3350 [Miralax] 17 gm PO BID 06/15/16 08/27/16 History Ferrous Sulfate [Feosol] 325 mg PO HS 08/27/16 08/27/16 History HYDROmorphone HCL [Dilaudid] 8 mg PO Q2H 08/27/16 08/27/16 History Melatonin 9 mg PO HS 08/27/16 08/27/16 History Morphine Sulfate ER [Ms Contin 15 mg PO Q8H PRN 08/27/16 08/27/16 History 15Mg] Morphine Sulfate ER [Ms Contin 30 mg PO Q12HR 08/27/16 08/27/16 History 30Mg] Mylanta Susp 30 ml PO Q6H PRN 08/27/16 08/27/16 History Na Phos,M-B/Na Phos,Di-Ba [Fleet 133 ml RECTAL DAILY PRN 08/27/16 08/27/16 History Adult] Icgzlqba-Tljgftmqhj-Zwew Oint 1 applic TOPICAL TID 08/27/16 08/27/16 History [Triple Antibiotic Ointment] Potassium Chloride 8 meq PO HS 08/27/16 08/27/16 History Allergies Allergy/AdvReac Type Severity Reaction Status Date / Time ciprofloxacin [From Cipro] Allergy Unknown Verified 08/27/16 13:36 escitalopram [From Lexapro] Allergy Unknown Verified 08/27/16 13:36 fexofenadine [From Oksana] Allergy Unknown Verified 08/27/16 13:36 gabapentin [From Neurontin] Allergy Unknown Verified 08/27/16 13:36 Influenza Virus Vaccines Allergy Unknown Verified 08/27/16 13:36 levetiracetam [From Keppra] Allergy Unknown Verified 08/27/16 13:36 paroxetine [From Paxil] Allergy Unknown Verified 08/27/16 13:36 Penicillins Allergy Anaphylaxis Verified 08/27/16 13:36 pregabalin [From Lyrica] Allergy Anaphylaxis Verified 08/27/16 13:36 sulfamethoxazole Allergy Dyspnea Verified 08/27/16 13:36 [From Bactrim] topiramate [From Topamax] Allergy Dyspnea Verified 08/27/16 13:36 trimethoprim [From Bactrim] Allergy Dyspnea Verified 08/27/16 13:36 tuberculin, purified protein Allergy Unknown Verified 08/27/16 13:36 deriva Physical Examination - Vital Signs Vital Signs: Vital Signs Temp Pulse Pulse Resp BP BP Pulse Ox 08/28/16 04:00 99.4 F 66 18 120/59 93 L 08/28/16 00:00 99.4 F 70 18 148/66 96 08/27/16 20:00 98.4 F 63 18 149/67 96 08/27/16 15:11 97.6 F 52 L 18 138/61 99 08/27/16 14:02 98.4 F 59 L 18 137/51 93 L 08/27/16 13:00 55 L 18 144/63 95 08/27/16 11:53 54 L 18 135/61 94 L 08/27/16 11:02 97 18 130/60 93 L Intake and Output 08/27/16 08/28/16 08/28/16 22:59 06:59 14:59 Intake Total 200 900 Output Total 2000 Balance 200 -1100 Intake: IV 200 800 Sodium Chloride 0.9% 1, 200 800 000 ml @ 100 mls/hr IV . Q10H [facility] Rx#:[id number] Intake, IV Titration 100 Amount Phenytoin Sodium Inj 100 100 mg In Sodium Chloride 0.9 % 100 ml @ 200 mls/hr IVPB Q8H [facility] Rx#: [id number] Output: Urine 1999 Other: Voiding Method Indwelling Catheter Indwelling Catheter Weight 78 kg - Constitutional General appearance: average body habitus, cooperative - EENT EENT: PERRL, mucous membranes moist - Respiratory Respiratory: lungs clear, normal breath sounds - Cardiovascular Cardiovascular: normal S1, normal S2 Extremities: no peripheral edema bilaterally - Gastrointestinal Gastrointestinal: normoactive bowel sounds - Integumentary Integumentary: normal - Neurologic Cranial nerve examination: PERRL, VFF, V1/V2/V3 grossly intact, face symmetric, intact gag reflex, intact corneal reflex, normal palatal elevation Speech examination: intact Sensorimotor examination: intact Motor examination - right side: 3/5: biceps, triceps, wrist flexion, wrist extension, lead press operator, hip flexors, knee extensors, dorsiflexion, toe extension (EHL) , plantarflexion Motor examination - left side: 3/5: biceps, triceps, wrist flexion, wrist extension, lead press operator, hip flexors, knee extensors, dorsiflexion, toe extension (EHL) , plantarflexion Detailed sensory examination: intact Reflex and gait examination: intact Reflexes: 1+: ankle, bicep, knee, tricep - Musculoskeletal Musculoskeletal: no pain - Psychiatric Psychiatric: mood/affect appropriate, cooperative Results - Laboratory Findings CBC and BMP: 08/28/16 06:16 08/27/16 10:52 Abnormal Lab Findings: Abnormal Labs 08/27/16 08/27/16 08/27/16 10:27 10:27 10:52 RDW 19.4 H D-Dimer BUN Glucose POC Glucose (mg/dL) Total Creatine Kinase Triglycerides HDL Cholesterol Urine Blood Trace H Urine Nitrite Positive H Ur Leukocyte Esterase Moderate H Urine WBC 14 H Urine Bacteria Rare H Hyaline Casts 8 H Urine Mucus Rare H Urine Opiates Screen Detected H U Benzodiazepines Scrn Detected H 08/27/16 08/27/16 08/27/16 10:52 10:52 10:52 RDW D-Dimer 1.65 H BUN 21 H Glucose 104 H POC Glucose (mg/dL) Total Creatine Kinase 139 H Triglycerides HDL Cholesterol Urine Blood Urine Nitrite Ur Leukocyte Esterase Urine WBC Urine Bacteria Hyaline Casts Urine Mucus Urine Opiates Screen U Benzodiazepines Scrn 07/08/27/16 08/27/16 16:44 16:56 21:06 RDW D-Dimer BUN Glucose POC Glucose (mg/dL) 115 H 112 H Total Creatine Kinase 139 H Triglycerides HDL Cholesterol Urine Blood Urine Nitrite Ur Leukocyte Esterase Urine WBC Urine Bacteria Hyaline Casts Urine Mucus Urine Opiates Screen U Benzodiazepines Scrn 08/27/16 08/28/16 08/28/16 23:02 05:40 06:16 RDW D-Dimer BUN Glucose POC Glucose (mg/dL) 112 H Total Creatine Kinase 141 H Triglycerides 158 H HDL Cholesterol 39 L Urine Blood Urine Nitrite Ur Leukocyte Esterase Urine WBC Urine Bacteria Hyaline Casts Urine Mucus Urine Opiates Screen U Benzodiazepines Scrn Assessment and Plan (1) New onset seizure Status: Acute Code(s): R56.9 - UNSPECIFIED CONVULSIONS (2) Paraplegia Status: Acute Code(s): G82.20 - PARAPLEGIA, UNSPECIFIED (3) Previous back surgery Status: Acute Code(s): Z98.890 - OTHER SPECIFIED POSTPROCEDURAL STATES (4) Atrial fibrillation with RVR Status: Acute Code(s): I48.91 - UNSPECIFIED ATRIAL FIBRILLATION Plan: This patient is a 66-year-old right-handed white female admitted to hospital with recent syncopal episode at skilled nursing. Patient was having a cigarette and apparently had a syncopal episode. Patient was admitted to hospital for further evaluation. Yesterday she developed a new onset of seizure activity which was witnessed by nursing staff. She underwent a computed tomography scan of the brain which was negative for any acute changes. She was started on Dilantin for seizure prophylaxis. Her Dilantin level today is therapeutic at 12.6. The patient is scheduled for MRI and EEG tomorrow for further evaluation. This patient has history of seizures in the past. She has not been on any recent anticonvulsant medications. Given her history of atrial fibrillation we are recommending MRI of the brain to rule out acute stroke as well. Her overall prognosis at this time remains very guarded. She does have multiple complex medical issues. She has been placed in the skilled nursing as she is paraplegic. We will continue to follow her progress closely. Overall prognosis at this time remains very guarded. Time with Patient: Greater than 30
[2016-08-29] MEDS: HYDROmorphone 2 MG TAB PO SCH ×8 (02:23→15:59)
[2016-08-29] MEDS: SODIUM CHLORIDE 0.9% 1,000 ML IV SCH ×2 (05:57→16:03)
[2016-08-29 07:01] LABS: Anisocytosis Slight; CH 23.9; CHCM 29.5; HCT 35.7 % (34.0-46.0); HDW 2.77; HGB 10.5 gm/dL (11.4-16.0); Hypochromasia Marked; MCH 23.9 pg (25.0-35.0); MCHC 29.5 g/dL (31.0-37.0); MCV 81.1 fL (80.0-100.0); Mean Platelet Volume 8.1; Microcytosis Slight; RDW 19.4 % (11.5-15.5); WBC 5.6 k/uL (3.8-10.6)
[2016-08-29] MEDS: PANTOPRAZOLE 40 MG TABLET PO SCH (07:04)
[2016-08-29] MEDS: HYDROmorphone 2 MG TAB PO PRN ×4 (07:05→19:44)
[2016-08-29 07:26] LABS: Anion Gap 9 mmol/L; Blood Urea Nitrogen 16 mg/dL (7-17); Calcium 8.5 mg/dL (8.4-10.2); Carbon Dioxide 29 mmol/L (22-30); Chloride 104 mmol/L (98-107); Glucose 87 mg/dL (74-99); Non-African American GFR(MDRD) >60 (>60 ml/min/1.73 sqM); Potassium 4.1 mmol/L (3.5-5.1); Sodium 142 mmol/L (137-145)
[2016-08-29] MEDS: OXYBUTYNIN XL 5 MG TAB.ER.24 PO SCH (09:18)
[2016-08-29] MEDS: METOPROLOL TARTRATE 12.5 MG TAB PO SCH (09:18)
[2016-08-29] MEDS: AMMONIUM LACTATE 12% LOTION 225 GM BTL TOPICAL SCH (09:18)
[2016-08-29] MEDS: BACLOFEN 10 MG TAB PO SCH (09:18)
[2016-08-29] MEDS: ASPIRIN 325 MG TAB PO SCH (09:19)
[2016-08-29] MEDS: FUROSEMIDE 20 MG TAB PO SCH (09:19)
[2016-08-29] MEDS: APIXABAN 5 MG TAB PO SCH (09:19)
[2016-08-29] MEDS: POLYETHYLENE GLYCOL 3350 17 GM POWD.PACK PO SCH (09:20)
[2016-08-29] MEDS: NEOMYCIN-BACITRACIN-POLY OINT 14 GM TUBE TOPICAL SCH ×2 (09:37→16:03)
[2016-08-29] MEDS: LIDOCAINE 4% CREAM 5 GM TUBE TOPICAL SCH (09:37)
[2016-08-29 10:22] VITALS: RESP 18
[2016-08-29] MEDS: PHENYTOIN SODIUM INJ 50 MG/ML 2 ML VIAL IV SCH ×2 (10:26→13:49)
[2016-08-29] MEDS: MORPHINE SULFATE ER 30 MG TABLET PO SCH (11:40)
--- NOTE | 2016-08-29 11:43 | CONS ---
Suzy Jones is a 66 -year-old female with history of paraplegia and also paroxysmal atrial fibrillation who was living in extended care facility. Apparently, she was smoking a cigarette yesterday with friends and suddenly had an episode of unresponsiveness. It was felt that the patient had syncopal episodes. The duration of this unconscious period is unclear. It is reported that she was unresponsive for five to ten minutes. The patient was brought to the hospital and she is being monitored. Yesterday she had an episode of witnessed seizure. The patient has been on Dilantin since then. The patient has been on chronic anticoagulation therapy with Apixaban for atrial fibrillation. The patient had a bout of atrial fibrillation on admission. She was treated with IV Cardizem. Subsequently she was converted back to sinus rhythm. She has sinus bradycardia. The patient is alert but appears to be unable to give a detailed history. The patient was taking some multiple narcotics and opiates. Those are held now. We are watching for any significant heber or tachyarrhythmias. The patient does have atrial fibrillation with is paroxysmal atrial fibrillation but she is adequately anticoagulated. The patient also had CT of the chest which was negative for pulmonary emboli. Fibrotic changes and atelectatic changes are noted at the lung bases. Venous duplex study was negative for DVT. Lab values show normal hemoglobin and white count. Electrolytes are normal. BUN and creatinine was within normal range. Troponins showed values of 0.012 followed by 0.024 followed by 0.01. These findings are inconsistent with coronary syndrome. Her cholesterol levels are within normal limits. MB bands are within normal limits. Her past medical history is significant for COPD, history of paraplegia, DVT, hyperlipidemia, hypertension, osteoarthritis, pulmonary emboli, seizure disorder , anemia, spinal stenosis. The rest of the information as per the chart. Her medications prior to admission are many. The patient was on multiple pain medications. The patient was on: 1. Apixaban 2.5 mg po b.i.d. 2. Ferrous sulfate 3. Pravastatin 20 mg. 4. Metoprolol 12.5 mg po b.i.d. The rest of the information as per the chart. Her blood pressure is running about 120 to 140 systolic, pulse rate is about 60s. Respirations are 18. The patient is alert. Does not appear to be in any acute distress. Neck is supple. No JVD. Heart S1, S2 heard, distant heart sounds. Lungs appear to be clear. Abdomen is soft. FINAL IMPRESSION: 1. Episode of possible syncope, though seizure activity cannot be completely excluded. 2. Witnessed seizure. 3. Atrial fibrillation with rapid ventricular rate which seems to be paroxysmal atrial fibrillation. 4. Hypercholesterolemia. 5. Multiple other medical problems. PLAN: At this point, we will continue to monitor for any significant pauses or bradyarrhythmias. She is being treated for seizure disorder. Further recommendations depend upon clinical course. TOSIN
--- NOTE | 2016-08-29 13:53 | P.DS ---
Providers Date of admission: 08/27/16 13:29 Expected date of discharge: 08/29/16 Attending physician: Talita Ley Consults: 08/27/16 13:26 Consult Physician Urgent Consulting Provider: Andrei Brown Consult Reason/Comments: afib Do you want consulting provider notified?: Yes 08/28/16 00:57 Consult Physician Urgent Consulting Provider: Allyssa Rodrigues Consult Reason/Comments: Seizure Do you want consulting provider notified?: Yes Primary care physician: [facility] Course: Final Diagnoses: #1 syncopal episode: Probably vasovagal event. #2 Paraplegia: No new weakness supportive care 3 proximal atrial fibrillation, sinus bradycardia, junctional #4 chronic low back pain #5 COPD without any acute exacerbation #5 DVT in the past will continue with anti-correlation as mentioned above #6 pulmonary embolism in the past #7 seizure disorder #8 cerebrovascular accident in the past. #9 tonic-clonic seizure: MRI and EEG, neurology evaluated the patient patient was started on Dilantin. Hospital course:66-year-old female with paraplegia came in with syncopal episode. Patient had a tonic-clonic seizure yesterday. Evaluated by Neurology and cardiology. Neuro workup ordered. Patient Declined MRI. EEG ordered. Now refusing to take Dilantin. Neurology Notified. No further seizure activity reported. Patient has been cleared for discharge by both cardiology and neurology. Patient is being discharged [facility] in a stable condition with guarded prognosis. The impression and plan of care has been dictated as directed as a scribe. : I performed a H&P examination of this patient and discussed the same with the dictator. I agree with the dictator's note. Any additional findings/opinions/ etc. will be noted. Patient Condition at Discharge: Stable Plan - Discharge Summary New Discharge Prescriptions: New Apixaban [Eliquis] 5 mg PO BID tab Ipratropium-Albuterol Nebulize [Duoneb 0.5 mg-3 mg/3 ml Soln] 3 ml INHALATION RT-QID neb Phenytoin Sodium Extended [Dilantin] 100 mg PO TID #90 capsule Famotidine [Pepcid] 20 mg PO BID #60 tablet Aspirin EC [Ecotrin Low Dose] 81 mg PO DAILY #30 tablet.dr Avilez Lubiprostone [Amitiza] 24 mcg PO BID Sennosides [Senna] 17.2 mg PO HS PRN PRN Reason: Constipation Furosemide [Lasix] 20 mg PO BID Pravastatin Sodium [Pravachol] 20 mg PO HS Acetaminophen [Tylenol] 325 mg PO Q8H PRN PRN Reason: Pain Oxybutynin Xl [Ditropan XL] 5 mg PO DAILY Tiotropium Lee [Spiriva Respimat] 1 cap INHALATION RT-DAILY Docusate [Colace] 200 mg PO BID PRN PRN Reason: Constipation Baclofen [Lioresal] 20 mg PO BID Omeprazole 20 mg PO BID Metoprolol Tartrate [Lopressor] 12.5 mg PO BID Bisacodyl [Dulcolax] 10 mg RECTAL DAILY PRN PRN Reason: Constipation Magnesium Hydroxide [Milk of Magnesia Concentrate] 2,400 mg PO DAILY PRN PRN Reason: Constipation Polyethylene Glycol 3350 [Miralax] 17 gm PO BID Lidocaine 4% Cream [Lmx 4] 1 applic TOPICAL BID Hydrocortisone 1% Lotion 1 applic TOPICAL BID PRN PRN Reason: Itching Ammonium Lactate Lotion [Lac-Hydrin 12% Lotion] 1 applic TOPICAL BID Mirtazapine [Remeron] 15 mg PO HS Benzocaine-Resorcinol Vaginal Cream 1 dose VAGINAL BID Levalbuterol Nebulized [Xopenex Nebulized] 1.25 mg INHALATION RT-Q6H PRN PRN Reason: Congestion Qqowtgtc-Rlfvqtncdq-Utkf Oint [Triple Antibiotic Ointment] 1 applic TOPICAL TID Potassium Chloride 8 meq PO HS Melatonin 9 mg PO HS Na Phos,M-B/Na Phos,Di-Ba [Fleet Adult] 133 ml RECTAL DAILY PRN PRN Reason: CONSTIPATION Ferrous Sulfate [Iron (65 MG Elemental)] 325 mg PO HS Mylanta Susp 30 ml PO Q6H PRN PRN Reason: Gi Upset LORazepam [Ativan] 1 mg PO TID PRN #10 PRN Reason: Anxiety Morphine Sulfate ER [Ms Contin] 15 mg PO Q8H PRN #10 PRN Reason: Pain Changed HYDROmorphone [Dilaudid] 2 mg PO Q4H PRN #10 PRN Reason: Pain Discontinued Apixaban [Eliquis] 2.5 mg PO BID Morphine Sulfate ER [Ms Contin] 30 mg PO Q12HR HYDROmorphone HCL [Dilaudid] 8 mg PO Q2H Discharge Medication List Lubiprostone [Amitiza] 24 mcg PO BID 08/17/15 [History] Acetaminophen [Tylenol] 325 mg PO Q8H PRN 05/26/16 [History] Baclofen [Lioresal] 20 mg PO BID 05/26/16 [History] Docusate [Colace] 200 mg PO BID PRN 05/26/16 [History] Furosemide [Lasix] 20 mg PO BID 05/26/16 [History] Oxybutynin Xl [Ditropan XL] 5 mg PO DAILY 05/26/16 [History] Pravastatin Sodium [Pravachol] 20 mg PO HS 05/26/16 [History] Sennosides [Senna] 17.2 mg PO HS PRN 05/26/16 [History] Tiotropium Lee [Spiriva Respimat] 1 cap INHALATION RT-DAILY 05/26/16 [ History] Ammonium Lactate Lotion [Lac-Hydrin 12% Lotion] 1 applic TOPICAL BID 06/15/16 [ History] Benzocaine-Resorcinol Vaginal Cream 1 dose VAGINAL BID 06/15/16 [History] Bisacodyl [Dulcolax] 10 mg RECTAL DAILY PRN 06/15/16 [History] Hydrocortisone 1% Lotion 1 applic TOPICAL BID PRN 06/15/16 [History] Levalbuterol Nebulized [Xopenex Nebulized] 1.25 mg INHALATION RT-Q6H PRN [History] Lidocaine 4% Cream [Lmx 4] 1 applic TOPICAL BID 06/15/16 [History] Magnesium Hydroxide [Milk of Magnesia Concentrate] 2,400 mg PO DAILY PRN [History] Metoprolol Tartrate [Lopressor] 12.5 mg PO BID 06/15/16 [History] Mirtazapine [Remeron] 15 mg PO HS 06/15/16 [History] Omeprazole 20 mg PO BID 06/15/16 [History] Polyethylene Glycol 3350 [Miralax] 17 gm PO BID 06/15/16 [History] Ferrous Sulfate [Iron (65 MG Elemental)] 325 mg PO HS 08/27/16 [History] Melatonin 9 mg PO HS 08/27/16 [History] Mylanta Susp 30 ml PO Q6H PRN 08/27/16 [History] Na Phos,M-B/Na Phos,Di-Ba [Fleet Adult] 133 ml RECTAL DAILY PRN 08/27/16 [ History] Axlylgbk-Wzfpuzsmun-Xymu Oint [Triple Antibiotic Ointment] 1 applic TOPICAL TID 08/27/16 [History] Potassium Chloride 8 meq PO HS 08/27/16 [History] Apixaban [Eliquis] 5 mg PO BID tab 08/29/16 [Rx] Aspirin EC [Ecotrin Low Dose] 81 mg PO DAILY #30 tablet. 08/29/16 [Rx] Famotidine [Pepcid] 20 mg PO BID #60 tablet 08/29/16 [Rx] HYDROmorphone [Dilaudid] 2 mg PO Q4H PRN #10 08/29/16 [Rx] Ipratropium-Albuterol Nebulize [Duoneb 0.5 mg-3 mg/3 ml Soln] 3 ml INHALATION RT -QID neb 08/29/16 [Rx] LORazepam [Ativan] 1 mg PO TID PRN #10 08/29/16 [Rx] Morphine Sulfate ER [Ms Contin] 15 mg PO Q8H PRN #10 08/29/16 [Rx] Phenytoin Sodium Extended [Dilantin] 100 mg PO TID #90 capsule 08/29/16 [Rx] Follow up Appointment(s)/Referral(s): Dylan Venegas MD [Primary Care Provider] - 3 Days Allyssa Rodrigues MD [STAFF PHYSICIAN] - 2 Weeks Activity/Diet/Wound Care/Special Instructions: [facility] pending final DC recommendations and clearance from neurology and cardiology. Confirm cardiology follow-up appointment prior to discharge. Confirm anticoagulation/both Eliquis and aspirin as per neurology. Activity: as tolerated CBC,BMP in 3 days Seiziure Precautions Discharge Disposition: TRANSFER TO SNF/F
--- NOTE | 2016-08-29 15:29 | P.PN ---
Subjective Principal diagnosis: Syncope/seizures 4-year-old female who came to the hospital following a syncopal episode, apparently friends had noticed the patient go down earlier in the day. On arrival here patient was noted to have seizure-like activity. Patient was also noted to be in A. fib with RVR and was initiated on Eliqis for anticoagulation. Patient is in normal sinus rhythm this morning. Patient was seen in consultation by neurology who felt that she may have a new onset seizures. Objective - Vital Signs Vital signs: Vital Signs Temp 98.1 F 08/29/16 12:00 Pulse 62 08/29/16 12:00 Resp 18 08/29/16 12:00 BP 141/70 08/29/16 12:00 Pulse Ox 97 08/29/16 12:00 Intake & Output 08/28/16 08/29/16 08/29/16 18:59 06:59 18:59 Intake Total 118 180 360 Output Total 700 1450 Balance -582 180 -1090 Intake: IV 180 Sodium Chloride 0.9% 1, 180 000 ml @ 100 mls/hr IV . Q10H [facility] Rx#:[id number] Oral 118 360 Output: Urine 700 1450 Other: Voiding Method Indwelling Catheter Indwelling Catheter Indwelling Catheter - Exam PHYSICAL EXAMINATION: HEENT: Head is atraumatic, normocephalic. Pupils equal, round. Neck is supple. There is no elevated jugular venous pressure. HEART EXAMINATION: Heart S1, S2 normal. No murmur or gallop heard. CHEST EXAMINATION: Lungs are clear to auscultation and precussion. No chest wall tenderness is noted on palpation or with deep breathing.] ABDOMEN: [ Soft, nontender. Bowel sounds are heard. No organomegaly noted]. EXTREMITIES:[ 2+ peripheral pulses with no evidence of peripheral edema and no calf tenderness noted]. NEUROLOGIC [patient is awake, alert very flat affect. - Labs CBC & Chem 7: 08/29/16 06:38 08/29/16 06:38 Labs: Abnormal Lab Results - Last 24 Hours (Table) 08/29/16 Range/Units 06:38 Hgb 10.5 L (11.4-16.0) gm/dL MCH 23.9 L (25.0-35.0) pg MCHC 29.5 L (31.0-37.0) g/dL RDW 19.4 H (11.5-15.5) % Microbiology - Last 24 Hours (Table) 08/27/16 10:27 Urine Culture - Preliminary Urine,Catheterized Gram Neg Bacilli Assessment and Plan (1) Paroxysmal a-fib Status: Acute (2) Hyperlipemia Status: Acute (3) Seizure Status: Acute (4) Syncope and collapse Status: Acute Plan: From cardiology's perspective, we'll continue the patient on her current medications. We will continue to monitor for any further tachycardia or bradycardia arrhythmias. She has had no noted pauses or bradycardia arrhythmias. DNP note has been reviewed, I agree with a documented findings and plan of care. Patient was seen and examined.
[2016-08-29 16:50] VITALS: BP 138/76; PULSE 68; TEMP 97.9
--- NOTE | 2016-08-31 10:19 | ECHOF ---
Referral Reason:syncope MEASUREMENTS -------- HEIGHT: 160.0 cm WEIGHT: 77.6 kg BP: 129/62 RVIDd: 2.8 cm (< 3.3) IVSd: 1.2 cm (0.6 - 1.1) LVIDd: 4.0 cm (3.9 - 5.3) LVPWd: 1.1 cm (0.6 - 1.1) IVSs: 1.4 cm LVIDs: 2.7 cm LVPWs: 1.5 cm LA Diam: 3.0 cm (2.7 - 3.8) LAESV Index (A-L): 24.69 ml/m Ao Diam: 3.2 cm (2.0 - 3.7) AV Cusp: 2.1 cm (1.5 - 2.6) MV EXCURSION: 13.059 mm (> 18.000) MV EF SLOPE: 93 mm/s (70 - 150) EPSS: 0.2 cm MV E Vinnie: 1.04 m/s MV DecT: 202 ms MV A Vinnie: 0.97 m/s MV E/A Ratio: 1.07 RAP: 5.00 mmHg RVSP: 24.18 mmHg FINDINGS -------- Sinus rhythm. This was a technically good study. The left ventricular size is normal. There is borderline concentric left ventricular hypertrophy. Overall left ventricular systolic function is normal with, an EF between 60 - 65 %. The right ventricle is normal in size. Normal LA size by volume 22+/-6 ml/m2. The right atrium is normal in size. The aortic valve was not well visualized. Mild mitral annular calcification present. There is trace to mild mitral regurgitation. Mild tricuspid regurgitation present. Right ventricular systolic pressure is normal at < 35 mmHg. The pulmonic valve was not well visualized. The aortic root size is normal. Normal inferior vena cava with normal inspiratory collapse consistent with estimated right atrial pressure of 5 mmHg. There is no pericardial effusion. CONCLUSIONS -------- 1. Sinus rhythm. 2. There is trace to mild mitral regurgitation. 3. Mild tricuspid regurgitation present. 4. Right ventricular systolic pressure is normal at < 35 mmHg. 5. The pulmonic valve was not well visualized. 6. The aortic root size is normal. 7. Normal inferior vena cava with normal inspiratory collapse consistent with estimated right atrial pressure of 5 mmHg. 8. There is no pericardial effusion. 9. This was a technically good study. 10. The left ventricular size is normal. 11. There is borderline concentric left ventricular hypertrophy. 12. Overall left ventricular systolic function is normal with, an EF between 60 - 65 %. 13. The right ventricle is normal in size. 14. Normal LA size by volume 22+/-6 ml/m2. 15. The aortic valve was not well visualized. 16. Mild mitral annular calcification present. SU[employer]PLIER [employer]ATIONSHIP DIRECTOR: Ute Luna RDCS
== END 2016-08-29 19:50 | DRG 101 ==
LOC: EC 09:53 → 6SEL 13:29
PROVIDERS: ADMIT Hospitalist; ATTEND Hospitalist
DX: G40.409 Other generalized epilepsy and epileptic syndromes, not intractable, without status epilepticus (principal); G82.20 Paraplegia, unspecified; E11.40 Type 2 diabetes mellitus with diabetic neuropathy, unspecified; I48.0 Paroxysmal atrial fibrillation; J44.9 Chronic obstructive pulmonary disease, unspecified; I10 Essential (primary) hypertension; R55 Syncope and collapse; D64.9 Anemia, unspecified; G89.29 Other chronic pain; T42.0X6A Underdosing of hydantoin derivatives, initial encounter; F43.10 Post-traumatic stress disorder, unspecified; M54.5 Low back pain; E78.5 Hyperlipidemia, unspecified; R32 Unspecified urinary incontinence; E78.00 Pure hypercholesterolemia, unspecified; F32.9 Major depressive disorder, single episode, unspecified; F60.9 Personality disorder, unspecified; F41.9 Anxiety disorder, unspecified; M19.90 Unspecified osteoarthritis, unspecified site; R91.8 Other nonspecific abnormal finding of lung field; M48.00 Spinal stenosis, site unspecified; F17.210 Nicotine dependence, cigarettes, uncomplicated; Z86.711 Personal history of pulmonary embolism; Z86.718 Personal history of other venous thrombosis and embolism; Z96.641 Presence of right artificial hip joint; Z86.73 Personal history of transient ischemic attack (TIA), and cerebral infarction without residual deficits; Z79.899 Other long term (current) drug therapy; Z79.01 Long term (current) use of anticoagulants; Z98.1 Arthrodesis status; Z79.891 Long term (current) use of opiate analgesic; Z79.51 Long term (current) use of inhaled steroids; Z88.1 Allergy status to other antibiotic agents; Z88.0 Allergy status to penicillin; Z99.3 Dependence on wheelchair; Z88.2 Allergy status to sulfonamides; Z88.7 Allergy status to serum and vaccine; Z88.8 Allergy status to other drugs, medicaments and biological substances; Z87.01 Personal history of pneumonia (recurrent); Z81.1 Family history of alcohol abuse and dependence; Z82.49 Family history of ischemic heart disease and other diseases of the circulatory system; Z98.51 Tubal ligation status; Z90.49 Acquired absence of other specified parts of digestive tract; Z91.14 Patient's other noncompliance with medication regimen; Z91.19 Patient's noncompliance with other medical treatment and regimen; Y83.9 Surgical procedure, unspecified as the cause of abnormal reaction of the patient, or of later complication, without mention of misadventure at the time of the procedure
CPT/HCPCS: 36415; 70450; 71275; 80048; 80053; 80061; 80185; 80306; 80320; 81001; 82140; 82550; 82553; 83520; 83605; 83735; 84100; 84443; 84484; 85025; 85027; 85049; 85379; 85610; 85730; 87077; 87086; 87186; 93005; 93306; 93970; 96361; 96365; 96367; 96375; 96376; 99291

== ENCOUNTER → 2017-02-13 | Outpatient (CLI) | payer MEDICARE, OTHER ==
[~2017-02-13] MED LIST: ALTEPLASE 2 MG VIAL (CATHFLO) IV STA; SODIUM CHLORIDE 0.9% 500 ML in EMPTY BAG 1 BAG IV PRN
== END | disposition home or self-care (01) ==
LOC: PROCWHC3 11:19
PROVIDERS: ATTEND Surgery
DX: Z45.2 Encounter for adjustment and management of vascular access device (principal)
CPT/HCPCS: 96375; 96523; J1642; J2997; 96374

== ENCOUNTER 2017-03-06 11:41 | Emergency (ER) | payer MEDICARE, OTHER ==
[2017-03-06] MEDS ORDERED: DIPH,PERTUS(ACELL)TETVAC-LF 0.5 ML VIAL IM ONE (12:14)
--- NOTE | 2017-03-06 12:16 | ED ---
Wound/Laceration HPI - General Chief Complaint: Wound/Laceration Stated Complaint: Laceration Time Seen by Provider: 03/06/17 11:52 Source: patient, EMS, RN notes reviewed Mode of arrival: EMS Limitations: no limitations - History of Present Illness Initial Comments: This a 66-year-old female presents emergency Department via EMS from [facility] for laceration to her left leg. She states that she cut on the edge of a wheelchair. Patient is unsure when her last tetanus was. Patient states that she has chronic swelling of the lower extremities. Patient also has chronic pain issues. Patient states that she does not have a sensation of her lower extremities with this is chronic. Patient denies any other injuries at this time. Denies fall. - Related Data Home Medications Medication Instructions Recorded Confirmed Acetaminophen [Tylenol] 650 mg PO Q8H PRN 05/26/16 03/06/17 Baclofen [Lioresal] 20 mg PO BID@0700,1600 05/26/16 03/06/17 Docusate [Colace] 200 mg PO BID PRN 05/26/16 03/06/17 Furosemide [Lasix] 20 mg PO BID 05/26/16 03/06/17 Oxybutynin Xl [Ditropan XL] 5 mg PO DAILY 05/26/16 03/06/17 Pravastatin Sodium [Pravachol] 20 mg PO HS@199905/26/16 03/06/17 Ammonium Lactate Lotion 1 applic TOPICAL BID 06/15/16 03/06/17 [Lac-Hydrin 12% Lotion] Bisacodyl [Dulcolax] 10 mg RECTAL DAILY PRN 06/15/16 03/06/17 Hydrocortisone 1% Lotion 1 applic TOPICAL BID 06/15/16 03/06/17 Levalbuterol Nebulized [Xopenex 1.25 mg INHALATION RT-Q6H PRN 06/15/16 03/06/17 Nebulized] Lidocaine 4% Cream [Lmx 4] 1 applic TOPICAL TID 06/15/16 03/06/17 Mirtazapine [Remeron] 15 mg PO HS@199906/15/16 03/06/17 Omeprazole 20 mg PO BID@0700,1600 06/15/16 03/06/17 Polyethylene Glycol 3350 [Miralax] 17 gm PO BID 06/15/16 03/06/17 Ferrous Sulfate [Iron (65 MG 325 mg PO HS 08/27/16 03/06/17 Elemental)] Melatonin 9 mg PO HS@199908/27/16 03/06/17 Mylanta Susp 30 ml PO Q6H PRN 08/27/16 03/06/17 Na Phos,M-B/Na Phos,Di-Ba [Fleet 133 ml RECTAL DAILY PRN 08/27/16 03/06/17 Adult] Potassium Chloride 8 meq PO BID 08/27/16 03/06/17 Aspirin EC [Ecotrin Low Dose] 81 mg PO HS 03/06/17 03/06/17 Fluticasone Nasal [place] [Flonase 1 spray EA NOSTRIL BID@0700,1600 03/06/1703/06 Nasal [place]] HYDROmorphone HCL [Dilaudid] 8 mg PO Q2H PRN 03/06/17 03/06/17 HYDROmorphone [Dilaudid] 2 mg PO Q2H PRN 03/06/17 03/06/17 Ipratropium-Albuterol Nebulize 3 ml INHALATION RT-Q6H PRN 03/06/17 03/06/17 [Duoneb 0.5 mg-3 mg/3 ml Soln] Linaclotide [Linzess] 145 mcg PO DAILY 03/06/17 03/06/17 Loperamide HCl [Imodium A-D] 2 mg PO DAILY PRN 03/06/17 03/06/17 Magnesium Hydroxide [Milk of 2,400 mg PO DAILY PRN 03/06/17 03/06/17 Magnesia] Menthol [[place]] 7.5 mg MM Q2H PRN 03/06/17 03/06/17 Menthol/Zinc Oxide [Calmoseptine 1 applic TOPICAL TID 03/06/17 03/06/17 Ointment] Metoprolol Succinate [Toprol XL] 12.5 mg PO DAILY 03/06/17 03/06/17 Morphine Sulfate ER [Ms Contin 30 mg PO Q8H PRN 03/06/17 03/06/17 30Mg] Phenytoin Sodium Extended 100 mg PO TID@0700,1300,1900 03/06/17 03/06/17 [Dilantin] Tiotropium 18 Mcg/Puff [Spiriva] 1 cap INHALATION RT-DAILY 03/06/17 03/06/17 Vagisil Cream 5-2% 1 applic VAGINAL BID 03/06/17 03/06/17 Previous Rx's Medication Instructions Recorded Apixaban [Eliquis] 5 mg PO BID tab 08/29/16 LORazepam [Ativan] 1 mg PO TID PRN #10 08/29/16 Morphine Sulfate ER [Ms Contin] 15 mg PO Q8H PRN #10 08/29/16 Clindamycin HCl 300 mg PO Q6HR #40 cap 03/06/17 Allergies Allergy/AdvReac Type Severity Reaction Status Date / Time ciprofloxacin [From Cipro] Allergy Unknown Verified 03/06/17 12:15 escitalopram [From Lexapro] Allergy Unknown Verified 03/06/17 12:15 fexofenadine [From Oksana] Allergy Unknown Verified 03/06/17 12:15 gabapentin [From Neurontin] Allergy Unknown Verified 03/06/17 12:15 Influenza Virus Vaccines Allergy Unknown Verified 03/06/17 12:15 levetiracetam [From Keppra] Allergy Unknown Verified 03/06/17 12:15 paroxetine [From Paxil] Allergy Unknown Verified 03/06/17 12:15 Penicillins Allergy Anaphylaxis Verified 03/06/17 12:15 pregabalin [From Lyrica] Allergy Anaphylaxis Verified 03/06/17 12:15 sulfamethoxazole Allergy Dyspnea Verified 03/06/17 12:15 [From Bactrim] topiramate [From Topamax] Allergy Dyspnea Verified 03/06/17 12:15 trimethoprim [From Bactrim] Allergy Dyspnea Verified 03/06/17 12:15 tuberculin, purified protein Allergy Unknown Verified 03/06/17 12:15 deriva Review of Systems ROS Statement: Those systems with pertinent positive or pertinent negative responses have been documented in the HPI. ROS Other: All systems not noted in ROS Statement are negative. Past Medical History Past Medical History: COPD, CVA/TIA, Deep Vein Thrombosis (DVT), Hyperlipidemia , Hypertension, Neurologic Disorder, Osteoarthritis (OA), Pneumonia, Pulmonary Embolus (PE), Seizure Disorder, Vascular Disorder Additional Past Medical History / Comment(s): anemia, rt sided hemiparesis , chronic pain, spinal stenosis, hx of pressure ulcers,"poor circulation", type 2 diabetes (no meds), neuropathy, hx of seizures (unknown date of last seizure.) , occasional incontinence. , Pt is wheelchair bound, uses carlo lift to transfer. History of Any Multi-Drug Resistant Organisms: None Reported Past Surgical History: Back Surgery, Cholecystectomy, Orthopedic Surgery, Tubal Ligation Additional Past Surgical History / Comment(s): RT HIP REPLACEMENT,SECOND SX ON HIP(REVISION)-pt satated that this has come apart since, spinal fusion x3, fem pop bypass bilaterally, RT ARM BLOOD CLOT REMOVED, Past Anesthesia/Blood Transfusion Reactions: No Reported Reaction Past Psychological History: Anxiety, Bipolar, Depression, PTSD Smoking Status: Current every day smoker - Past Family History Father Additional Family Medical History / Comment(s): ETOH ABUSE Mother Additional Family Medical History / Comment(s): POOR CIRCULATION General Exam Limitations: no limitations General appearance: alert, in no apparent distress Head exam: Present: atraumatic, normocephalic, normal inspection Neck exam: Present: normal inspection, full ROM. Absent: tenderness, meningismus, lymphadenopathy Respiratory exam: Present: normal lung sounds bilaterally. Absent: respiratory distress, wheezes, rales, rhonchi, stridor Cardiovascular Exam: Present: regular rate, normal rhythm, normal heart sounds. Absent: systolic murmur, diastolic murmur, rubs, gallop, clicks Extremities exam: Present: other (Bilateral lower extremity pedal edema noted, pedal pulses equal bilaterally, there is a V-shaped laceration approximately 7 cm in total length there is no active bleeding) Skin exam: Present: warm, dry Course Vital Signs 03/06/17 11:43 Temperature 98 F Pulse Rate 70 Respiratory 15 Rate Blood Pressure 161/66 O2 Sat by Pulse 99 Oximetry Procedures - Laceration Laceration #1 Consent Obtained: verbal consent Indication: laceration Site: lower extremity (left) Size (cm): 7 Description: flap, irregular Depth: simple, single layer Anesthetic Used: lidocaine 1%, without epi Anesthesia Technique: local infiltration Amount (mls): 8 Pre-repair: wound explored, irrigated extensively, deep structures intact Type of Sutures: nylon Size of Sutures: 4-0 Number of Sutures: 13 Technique: simple, interrupted Patient Tolerated Procedure: well, no complications Additional Comments: Bacitracin applied Medical Decision Making - Medical Decision Making 66-year-old female presented for laceration to her left leg. This was repaired using sutures. Her tetanus was updated. Patient's leg was wrapped be sent back to [facility]. Disposition Clinical Impression: Laceration of left lower leg Disposition: HOME SELF-CARE Condition: Stable Instructions: Care For Your Stitches (ED), Laceration (ED) Additional Instructions: Wash area twice daily with soap and water keep clean. Have sutures removed in 14 days.Please return to the Emergency Department if symptoms worsen or any other concerns. Prescriptions: Clindamycin HCl 300 mg PO Q6HR #40 cap Referrals: Dylan Venegas MD [Primary Care Provider] - 1-2 days Time of Disposition: 13:07
[2017-03-06] MEDS: HYDROcodone/APAP 10-325MG 1 EACH TAB PO ONE ×2 (12:23→12:33)
[2017-03-06] MEDS ORDERED: MORPHINE SULFATE 5 MG/ML SYRINGE IM STA (12:32)
[2017-03-06 13:20] VITALS: BP 124/56; PULSE 69; RESP 18; TEMP 97.8
== END 2017-03-06 13:44 | disposition home or self-care (01) ==
LOC: EC 11:41
DX: S81.812A Laceration without foreign body, left lower leg, initial encounter (principal); M79.89 Other specified soft tissue disorders; E78.5 Hyperlipidemia, unspecified; I10 Essential (primary) hypertension; J44.9 Chronic obstructive pulmonary disease, unspecified; D64.9 Anemia, unspecified; G40.909 Epilepsy, unspecified, not intractable, without status epilepticus; M19.90 Unspecified osteoarthritis, unspecified site; F17.200 Nicotine dependence, unspecified, uncomplicated; Z79.51 Long term (current) use of inhaled steroids; Z79.52 Long term (current) use of systemic steroids; Z79.82 Long term (current) use of aspirin; Z79.899 Other long term (current) drug therapy; Z88.0 Allergy status to penicillin; Z88.1 Allergy status to other antibiotic agents; Z88.7 Allergy status to serum and vaccine; Z88.8 Allergy status to other drugs, medicaments and biological substances; Z99.3 Dependence on wheelchair; Z23 Encounter for immunization; W45.8XXA Other foreign body or object entering through skin, initial encounter
CPT/HCPCS: 90715; 99283; 12002; 90471; 96372; J2274

== ENCOUNTER → 2017-04-13 | Outpatient (CLI) | payer MEDICARE, OTHER ==
--- NOTE | 2017-04-13 16:00 | XR ---
EXAMINATION TYPE: XR chest 1V DATE OF EXAM: 04/13/2017 COMPARISON: Prior chest x-ray 08/17/2015 HISTORY: Preop clearance TECHNIQUE: frontal view of the chest is obtained on 2 images. FINDINGS: Patient is rotated. Right-sided Port-A-Cath is present via jugular approach, distal tip ov erlying the superior vena cava. There is scarring in the right upper lobe. No evident pneumothorax or pleural effusion. Heart size may be accentuated by rotation. No definite airspace disease. 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 Postop changes noted to the cervical spine. IMPRESSION: No acute process.
== END | disposition home or self-care (01) ==
LOC: RADXRMAIN 14:31
PROVIDERS: ATTEND Internal Medicine
DX: Z01.818 Encounter for other preprocedural examination (principal)
CPT/HCPCS: 71045